=== PATIENT | male | born 1935 | race Caucasian/White ===

== ENCOUNTER → 2016-10-24 08:07 | Day surgery (SDC) | payer MEDICARE ==
[~2016-10-24 08:07] MED LIST: Acetaminophen TAB* 325 MG PO PRN; Buffered Lidocaine 1% SYRIN* 3 ML/SYR SYRINGE INTRADERM ONE; Cyclopentolate 1% OPTH.SOL* 2 ML BTL ONE; Flurbiprofen 0.03% OPTH.SOL* 2.5 ML BTL ONE; Lidocaine 1% MPF* 2 ML VIAL ONE; Lidocaine 2% EPI 1:200000 MPF* 20 ML VIAL ONE; Midazolam* 1 MG/ML 2 ML VIAL (2 MG) ONE; Neomycin/Polymy/Dex OPTH.SUSP* MAXITROL 0.1% 5 ML ONE; Phenylephrine 2.5% OPTH.SOL* 2 ML BTL ONE; Povidone Iodine 5% OPTH* 30 ML BTL ONE; Proparacaine 0.5% OPHTH.SOL* 15 ML BTL ONE; acetaZOLAMIDE TAB* 250 MG ONE
[2016-10-24 11:31] VITALS: BP 143/70
--- NOTE | 2016-10-25 08:06 | OP ---
DATE OF OPERATION: 10/24/16 - [facility] DATE OF : 39 SURGEON: Dillon Orozco MD PREOPERATIVE DIAGNOSIS: Cataract, right eye. POSTOPERATIVE DIAGNOSIS: Cataract, right eye. OPERATIVE PROCEDURE: Phacoemulsification, right eye with IOL. DESCRIPTION OF PROCEDURE: The patient was brought to the operating room after being given 1/2% Alcaine with epinephrine drops in the preoperative area. The eye was prepped and draped in the usual sterile fashion. Sterile drape and eyelid speculum were placed. Again, topical 1/2% Alcaine with epinephrine was given. A paracentesis incision was made at the 9 o'clock position with the No.75 blade. Clear cornea incision 2.2 x 2.2-mm was created at the 12 o'clock position starting at the anterior limbus using the 2.2-mm keratome. The anterior chamber was irrigated with 0.4 mL of 1% non-preservative intracameral lidocaine and filled with DisCoVisc. A capsulorrhexis was completed using the cystotome and the Utrata forceps. Hydrodissection was performed with balanced salt solution. The lens nucleus was removed with the Phacoemulsification handpiece without incident. Cortex was removed with the irrigation-aspiration handpiece. The capsular bag was re-inflated using DisCoVisc and an [id number] 18.5 implant was inserted with the shooter. The irrigation-aspiration handpiece was used to remove all residual DisCoVisc. The eye was refilled with balanced salt solution and the wound checked and found to be watertight. Topical Maxitrol drops were given. [id number]/[facility] #: [id number] [facility]
== END | disposition home or self-care (01) ==
LOC: OREAST 08:07
PROVIDERS: ATTEND Specialist
DX: H25.811 Combined forms of age-related cataract, right eye (principal); E11.9 Type 2 diabetes mellitus without complications; H50.00 Unspecified esotropia; Z87.891 Personal history of nicotine dependence; Z79.4 Long term (current) use of insulin; J44.9 Chronic obstructive pulmonary disease, unspecified
CPT/HCPCS: J2250; V2632

== ENCOUNTER → 2016-10-31 09:20 | Day surgery (SDC) | payer MEDICARE ==
[~2016-10-31 09:20] MED LIST changes: -Midazolam* 1 MG/ML 2 ML VIAL (2 MG) ONE; +Midazolam* 1 MG/ML 5 ML VIAL (5 MG) ONE
[2016-10-31 13:00] VITALS: BP 155/79
--- NOTE | 2016-11-01 02:18 | OP ---
DATE OF OPERATION: 10/31/16 - [facility] DATE OF : 39 SURGEON: Dillon Orozco M.D. PREOPERATIVE DIAGNOSIS: Cataract, left eye. POSTOPERATIVE DIAGNOSIS: Cataract, left eye. OPERATIVE PROCEDURE: Phacoemulsification, left eye with IOL. DESCRIPTION OF PROCEDURE: The patient was brought to the operating room after being given 1/2% Alcaine with epinephrine drops in the preoperative area. The eye was prepped and draped in the usual sterile fashion. Sterile drape and eyelid speculum were placed. Again, topical 1/2% Alcaine with epinephrine was given. A paracentesis incision was made at the 3 o'clock position with the No.75 blade. Clear cornea incision 2.2 x 2.2-mm was created at the 6 o'clock position starting at the anterior limbus using the 2.2-mm keratome. The anterior chamber was irrigated with 0.4 mL of 1% non-preservative intracameral lidocaine and filled with DisCoVisc. A capsulorrhexis was completed using the cystotome and the Utrata forceps. Hydrodissection was performed with balanced salt solution. The lens nucleus was removed with the Phacoemulsification handpiece without incident. Cortex was removed with the irrigation-aspiration handpiece. The capsular bag was re-inflated using DisCoVisc and an [id number] 19 implant was inserted with the shooter. The irrigation-aspiration handpiece was used to remove all residual DisCoVisc. The eye was refilled with balanced salt solution and the wound checked and found to be watertight. Topical Maxitrol drops were given. [id number]/[facility] #: [id number] [facility]
== END | disposition home or self-care (01) ==
LOC: OREAST 09:20
PROVIDERS: ATTEND Specialist
DX: H25.812 Combined forms of age-related cataract, left eye (principal); E11.9 Type 2 diabetes mellitus without complications; H50.00 Unspecified esotropia; Z87.891 Personal history of nicotine dependence; Z79.4 Long term (current) use of insulin
CPT/HCPCS: J2250; V2632

== ENCOUNTER 2017-01-25 18:42 | Emergency (ER) | payer MEDICARE ==
--- NOTE | 2017-01-25 19:57 | RAD ---
Indication: Weakness, ventriculoperitoneal shunt. CT of the brain was performed without IV contrast. Comparison is made with previous exam dated February 04, 2015. Ventricular structures are midline. No midline shift is noted. The ventricles are mildly enlarged. A ventricular shunt remains in place unchanged since previous exam. There is no evidence of intracranial mass or hemorrhage. No other high or low density lesions are identified. Mastoid air cells, calvaria and paranasal sinuses are grossly unremarkable. IMPRESSION: No significant change is noted since previous exam of February 04, 2015. Mild ventriculomegaly is noted. Ventricular shunt remains in place.
[2017-01-25 20:38] LABS: Hematocrit 40 % (42-52); Hemoglobin 13.7 g/dl (14.0-18.0); Mean Corpuscular HGB Conc 34 g/dl (31-36); Mean Corpuscular Hemoglobin 33 pg (27-31); Mean Corpuscular Volume 97 fL (80-94); Mean Platelet Volume 8 um3 (7.4-10.4); Red Blood Count 4.14 10^6/ul (4.0-5.4); Red Cell Distribution Width 13 % (10.5-15); White Blood Count 8.6 10^3/ul (3.5-10.8)
[2017-01-25 20:54] LABS: Albumin 3.8 g/dL (3.2-5.2); BUN/Creatinine Ratio 14.5 (8-20); C Reactive Protein 6.09 mg/L (< 5.00); Calcium 9.7 mg/dL (8.6-10.3); EGFR Non-African American 64.6 (>60); Globulin 3.5 g/dL (2-4); Magnesium 1.8 mg/dL (1.9-2.7); Potassium 4.2 mmol/L (3.5-5.0); Total Bilirubin 0.6 mg/dL (0.2-1.0); Total Protein 7.3 g/dL (6.4-8.9)
[2017-01-25 20:55] LABS: Troponin I 0.01 ng/mL (<0.04)
[2017-01-25 21:18] LABS: TSH (Thyroid Stimulating Horm) 1.71 mcIU/mL (0.34-5.60)
--- NOTE | 2017-01-25 23:04 | ED ---
Oscar Mohr Salem, scribed for Luis Medley MD on 01/25/17 at 1936 . Complex/Multi-Sys Presentation - HPI Summary HPI Summary: Patient is a 81 y/o M who presents to the ED with weakness for the past 3 days, worse today. Family members present at bedside deny fever, changes in urination , or nausea, but report slow BM, loose stool, hip pain, rhinorrhea, vomiting ( of yellow consistency), rib pain from falling, and loss of appetite. Family also states that pt has been falling frequently and soiling himself. Pt fell yesterday when moving from bed to bed, as well as earlier today. He soiled himself before falling today and prior to examination. Pt states he has been in and out of the hospital. - History Of Current Complaint Chief Complaint: EDWeakness Time Seen by Provider: 01/25/17 19:18 Hx Obtained From: Patient, Family/Enrichment Specialist Onset/Duration: Gradual Onset, Lasting Days, Still Present Timing: Constant Severity Currently: Moderate Severity Initially: Moderate Location: Pain At: Aggravating Factor(s): Nothing. Alleviating Factor(s): Nothing. Associated Signs And Symptoms: Positive: Weakness. Negative: Nausea, Fever - Allergies/Home Medications Allergies/Adverse Reactions: Allergies Allergy/AdvReac Type Severity Reaction Status Date / Time Atorvastatin [From Lipitor] Allergy Unknown Verified 10/31/16 10:06 Reaction Details Rosuvastatin [From Crestor] Allergy Unknown Verified 10/31/16 10:06 Reaction Details PMH/Surg Hx/FS Hx/Imm Hx Endocrine/Hematology History: Reports: Hx Diabetes Cardiovascular History: Reports: Hx Hypertension Denies: Hx Pacemaker/ICD Respiratory History: Reports: Hx Chronic Obstructive Pulmonary Disease (COPD), Hx Pneumonia Denies: Hx Asthma GI History: Reports: Hx Hiatal Hernia, Other GI Disorders - CONSTIPATION History: Reports: Other Problems/Disorders - increased incontinance, bladder ca Denies: Hx Kidney Stones, Hx Renal Disease Musculoskeletal History: Reports: Hx Arthritis, Hx Back Problems, Other Musculoskeletal History - HAS HAD BACK SURGERY PLATE WITH MARIA TERESA LOWER BACK Sensory History: Reports: Hx Cataracts, Hx Contacts or Glasses, Hx Hearing Aid - TYPICALLY DOESN'T WEAR THEM, Hx Hearing Problem - CASTILLO's at home Denies: Hx Glaucoma Opthamlomology History: Reports: Hx Cataracts, Hx Contacts or Glasses Denies: Hx Glaucoma Neurological History: Reports: Other Neuro Impairments/Disorders - V/P SHUNT 2014 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 BLADDER SURGERY 2006;. RIGHT ANKLE 1976;. SHUNT 11/03 --- DR. COOPER ( NOT PROGRAMMABLE - SAFE TO 3T DOES NOT NEED TO BE CHECKED PRIOR OR POST MRI ) ;. VASECTOMY; Hx Anesthesia Reactions: No Infectious Disease History: No Infectious Disease History: Reports: Hx Shingles - 2003 Denies: Traveled Outside the [place] in Last 30 Days - Family History Known Family History: Positive: Other - Strabismus. - Social History Alcohol Use: None Alcohol Amount: BEER Hx Substance Use: No Substance Use Type: Reports: None Hx Tobacco Use: Yes Smoking Status (MU): Former Smoker Type: Cigarettes Have You Smoked in the Last Year: No Review of Systems Negative: Fever Positive: Nasal Discharge Positive: Other - Rib pain. Positive: Vomiting, Other - Loss of appetite. . Negative: Nausea Genitourinary: Other - No changes in urination. Positive: no symptoms reported, other - "Slow" BM and loose stool. Positive: Other - Hip pain. Positive: Weakness All Other Systems Reviewed And Are Negative: Yes Physical Exam Triage Information Reviewed: Yes Vital Signs On Initial Exam: Initial Vitals Temp Pulse Resp BP Pulse Ox 99.3 F 83 20 158/98 98 01/25/17 19:01 01/25/17 19:01 01/25/17 19:01 01/25/17 19:01 01/25/17 19:01 Vital Signs Reviewed: Yes Appearance: Positive: Well-Appearing, No Pain Distress, Obese Skin: Positive: Warm, Skin Color Reflects Adequate Perfusion, Dry Head/Face: Positive: Normal Head/Face Inspection Eyes: Positive: Normal Neck: Positive: Supple, Nontender Respiratory/Lung Sounds: Positive: Clear to Auscultation, Breath Sounds Present , Other - Tender over xiphoid in costal margin. Cardiovascular: Positive: RRR Abdomen Description: Positive: Nontender, Soft Bowel Sounds: Positive: Present Musculoskeletal: Positive: Normal Neurological: Positive: Normal Psychiatric: Positive: Normal, Affect/Mood Appropriate Diagnostics - Vital Signs Vital Signs Temp Pulse Resp BP Pulse Ox 01/25/17 19:01 99.3 F 83 20 158/98 98 - Laboratory Lab Results: Lab Results 01/25/17 01/25/17 01/25/17 Range/Units 20:30 20:30 20:30 WBC 8.6 (3.5-10.8) 10^3/ul RBC 4.14 (4.0-5.4) 10^6/ul Hgb 13.7 L (14.0-18.0) g/dl Hct 40 L (42-52) % MCV 97 H (80-94) fL MCH 33 H (27-31) pg MCHC 34 (31-36) g/dl RDW 13 (10.5-15) % Plt Count 261 (150-450) 10^3/ul MPV 8 (7.4-10.4) um3 Neut % (Auto) 79.7 (38-83) % Lymph % (Auto) 11.9 L (25-47) % [place] % (Auto) 7.2 (1-9) % Eos % (Auto) 0.7 (0-6) % Baso % (Auto) 0.5 (0-2) % Absolute Neuts (auto) 6.9 (1.5-7.7) 10^3/ul Absolute Lymphs (auto) 1.0 (1.0-4.8) 10^3/ul Absolute Monos (auto) 0.6 (0-0.8) 10^3/ul Absolute Eos (auto) 0.1 (0-0.6) 10^3/ul Absolute Basos (auto) 0 (0-0.2) 10^3/ul Absolute Nucleated RBC 0 10^3/ul Nucleated RBC % 0 INR (Anticoag Therapy) 0.93 (0.89-1.11) Sodium 134 (133-145) mmol/L Potassium 4.2 (3.5-5.0) mmol/L Chloride 99 L (101-111) mmol/L Carbon Dioxide 26 (22-32) mmol/L Anion Gap 9 (2-11) mmol/L BUN 16 (6-24) mg/dL Creatinine 1.10 (0.67-1.17) mg/dL Est GFR ( Amer) 83.0 (>60) Est GFR (Non-Af Amer) 64.6 (>60) BUN/Creatinine Ratio 14.5 (8-20) Glucose 162 H (70-100) mg/dL Lactic Acid (0.5-2.0) mmol/L Calcium 9.7 (8.6-10.3) mg/dL Magnesium 1.8 L (1.9-2.7) mg/dL Total Bilirubin 0.60 (0.2-1.0) mg/dL AST 24 (13-39) U/L ALT 27 (7-52) U/L Alkaline Phosphatase 77 (34-104) U/L Troponin I 0.01 (<0.04) ng/mL C-Reactive Protein 6.09 H (< 5.00) mg/L Total Protein 7.3 (6.4-8.9) g/dL Albumin 3.8 (3.2-5.2) g/dL Globulin 3.5 (2-4) g/dL Albumin/Globulin Ratio 1.1 (1-3) TSH 1.71 (0.34-5.60) mcIU/mL 01/25/17 Range/Units 20:30 WBC (3.5-10.8) 10^3/ul RBC (4.0-5.4) 10^6/ul Hgb (14.0-18.0) g/dl Hct (42-52) % MCV (80-94) fL MCH (27-31) pg MCHC (31-36) g/dl RDW (10.5-15) % Plt Count (150-450) 10^3/ul MPV (7.4-10.4) um3 Neut % (Auto) (38-83) % Lymph % (Auto) (25-47) % Richmond % (Auto) (1-9) % Eos % (Auto) (0-6) % Baso % (Auto) (0-2) % Absolute Neuts (auto) (1.5-7.7) 10^3/ul Absolute Lymphs (auto) (1.0-4.8) 10^3/ul Absolute Monos (auto) (0-0.8) 10^3/ul Absolute Eos (auto) (0-0.6) 10^3/ul Absolute Basos (auto) (0-0.2) 10^3/ul Absolute Nucleated RBC 10^3/ul Nucleated RBC % INR (Anticoag Therapy) (0.89-1.11) Sodium (133-145) mmol/L Potassium (3.5-5.0) mmol/L Chloride (101-111) mmol/L Carbon Dioxide (22-32) mmol/L Anion Gap (2-11) mmol/L BUN (6-24) mg/dL Creatinine (0.67-1.17) mg/dL Est GFR ( Amer) (>60) Est GFR (Non-Af Amer) (>60) BUN/Creatinine Ratio (8-20) Glucose (70-100) mg/dL Lactic Acid 1.2 (0.5-2.0) mmol/L Calcium (8.6-10.3) mg/dL Magnesium (1.9-2.7) mg/dL Total Bilirubin (0.2-1.0) mg/dL AST (13-39) U/L ALT (7-52) U/L Alkaline Phosphatase (34-104) U/L Troponin I (<0.04) ng/mL C-Reactive Protein (< 5.00) mg/L Total Protein (6.4-8.9) g/dL Albumin (3.2-5.2) g/dL Globulin (2-4) g/dL Albumin/Globulin Ratio (1-3) TSH (0.34-5.60) mcIU/mL Result Diagrams: 01/25/17 20:30 01/25/17 20:30 Lab Statement: Any lab studies that have been ordered have been reviewed, and results considered in the medical decision making process. - CT BRAIN CT Interpretation Completed By: Radiologist - IMPRESSION: No significant change is noted since previous exam of February 04, 2015. Mild ventriculomegaly is noted. Ventricular shunt remains in place. - EKG 2108 EKG Interpretation: NSR @ 76 bpm. PVC's. Nonspecific changes. Complex Multi-Symp Course/Dx Course Of Treatment: Mr. Rees came in with a C/O 3 days of increasing weakness. He's been incontinent of stool a few times. He is being W/U'd at this time. - Diagnoses Provider Diagnoses: Weakness Discharge - Discharge Plan Condition: Stable Disposition: OTHER Discharge Disposition Comment: Signed out to Dr. Rouse at shift change. Referrals: Delaney Preston MD [Primary Care Provider] - The documentation as recorded by the Oscar padilla Salem accurately reflects the service I personally performed and the decisions made by me, Luis Medley MD.
[2017-01-25 23:28] LABS: Urine Bilirubin Negative (Negative); Urine Glucose Negative (Negative); Urine Nitrite Negative (Negative)
[2017-01-26 05:25] VITALS: BP 132/82
--- NOTE | 2017-01-26 08:05 | RAD ---
HISTORY: Fall, right-sided pain COMPARISONS: None VIEWS: 4, Frontal view of the chest with frontal and oblique views of the right hemithorax. FINDINGS: There is no displaced rib fracture or pneumothorax. The visualized lungs are clear. The [employer] shunt tubing is noted. There is postsurgical change to the spine IMPRESSION: NO DISPLACED RIB FRACTURE OR PNEUMOTHORAX
--- NOTE | 2017-01-26 10:23 | ED ---
Janee Mohr Rebecca, scribed for Kelle Rouse MD on 01/25/17 at 2317 . Progress - Progress Note Progress Note: Pt was signed out from Dr. Medley at 2300 for pending UA. CXR read by ED physician reveals no acute findings. R Rib XR read by ED physician reveals no obvious fracture in the R ribs. Re-Evaluation - Re-Evaluation First Eval Re-Evaluation Time: 23:14 Comment: Went in to see the pt with Dr. Medley to further discussed symptoms. Pt reports that he presents for generalized weakness and that he has chronic LE weakness that has worsened. 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 States that during his episodes of bowel incontinence he is aware that he needs to have a BM, but cannot get up. He usually needs help getting up to go to the bathroom. Dr. Medley performed a rectal exam and the pt had good rectal tone. Second Eval Re-Evaluation Time: 00:11 Comment: Discussed UA results with the pt and the current plan to D/C home. Confirms that his drives and that he believes there is a car at [facility]. Pt believes he has a walker at home to use. Confirms he feels well enough to go home. Third Eval Re-Evaluation Time: 00:15 Comment: Discussed results of the UA and labs with the . Answered any questions and addressed concerns of the . Offered the options of fluid hydration v. increasing water intake at home. confirms that he has a walker at home. Further reinforced that he must use the walker to decrease the risk of fall. reports a fall this morning and expressed concerns over right rib fx and expressed a desire for R rib XR. PCP is Dr. Preston. Fourth Eval Re-Evaluation Time: 04:24 Comment: Shared XR results with the pt and advised administration of Tylenol to treat pain at home. Course/Dx - Course Course Of Treatment: Pt was signed out form Dr. Medley at 2300, pending UA results. US reveals: urine color: yellow, appearance: clear, ketones: 1+ and negative for protein, blood, bilirubin, glucose and nitrate. Troponin of 0.01. CXR and Rib XR reveal no acute findings. Pt will be D/C to home with Dx of rib contusion and generalized weakness with a follow up with his PCP. - Diagnoses Provider Diagnoses: Rib contusion, Generalized weakness The documentation as recorded by the Janee padilla Rebecca accurately reflects the service I personally performed and the decisions made by me, Kelle Rouse MD.
== END 2017-01-26 05:27 ==
LOC: ED 18:42
DX: R53.1 Weakness (principal); R07.81 Pleurodynia; M25.559 Pain in unspecified hip; E11.9 Type 2 diabetes mellitus without complications; I10 Essential (primary) hypertension; J44.9 Chronic obstructive pulmonary disease, unspecified; E66.9 Obesity, unspecified; Z85.51 Personal history of malignant neoplasm of bladder; Z85.46 Personal history of malignant neoplasm of prostate; Z88.8 Allergy status to other drugs, medicaments and biological substances; Z87.891 Personal history of nicotine dependence
CPT/HCPCS: 36415; 70450; 80053; 81003; 83605; 83735; 84443; 84484; 85025; 85610; 86140; 93005; 99284

== ENCOUNTER 2017-02-12 16:51 | Inpatient (IN) | payer MEDICARE ==
--- NOTE | 2017-02-12 18:01 | RAD ---
Indication: Generalized weakness. Sudden onset slurred speech. Comparison: No relevant prior exams available on the [facility] PACS for comparison. Technique: Upright AP 1739 hours Report: RIGHT side ventriculoperitoneal shunt catheter noted. Suboptimal inspiration. Clear lungs and pleural spaces. Negative for pneumothorax. The heart, pulmonary vasculature, and mediastinal contours are unremarkable. Unremarkable osseous structures and soft tissue contours. IMPRESSION: Low lung volumes. No evidence for acute intrathoracic disease.
--- NOTE | 2017-02-12 18:44 | ED ---
I, Oh,Soohyun, scribed for Luis Medley MD on 02/12/17 at 1719 . Altered Mental Status - HPI Summary HPI Summary: This 81 y/o male presents to ED for slurred speech and disorientation regard to time after waking up his nap at 1500 PM. reports that pt did not know which year it is and where he was. Pt reports difficulty finding words and putting together sentences. Pt appears oriented to time and event at time of initial evaluation, and he is able to answer oriented question without any speech difficulty. Negative headache. 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 Pt has been following up with Dr. Negrete due to his recent frequent falls. Pending CT Scan to re-check his [employer] EDUCATION SCIENCE TEACHER shunt. - History Of Current Complaint Chief Complaint: EDAltMentalStatus Stated Complaint: DIFFICULTY SPEAKING Time Seen by Provider: 02/12/17 17:06 Hx Obtained From: Patient, Medical Records Onset/Duration: Resolved Timing: Constant Aggravating Factor(s): Nothing Alleviating Factor(s): Nothing Associated Signs And Symptoms: Negative: Headache - Allergies/Home Medications Allergies/Adverse Reactions: Allergies Allergy/AdvReac Type Severity Reaction Status Date / Time Atorvastatin [From Lipitor] Allergy Unknown Verified 10/31/16 10:06 Reaction Details Rosuvastatin [From Crestor] Allergy Unknown Verified 10/31/16 10:06 Reaction Details PMH/Surg Hx/FS Hx/Imm Hx Endocrine/Hematology History: Reports: Hx Diabetes Cardiovascular History: Reports: Hx Hypertension Denies: Hx Pacemaker/ICD Respiratory History: Reports: Hx Chronic Obstructive Pulmonary Disease (COPD), Hx Pneumonia Denies: Hx Asthma GI History: Reports: Hx Hiatal Hernia, Other GI Disorders - CONSTIPATION History: Reports: Other Problems/Disorders - increased incontinance, bladder ca Denies: Hx Kidney Stones, Hx Renal Disease Musculoskeletal History: Reports: Hx Arthritis, Hx Back Problems, Other Musculoskeletal History - HAS HAD BACK SURGERY PLATE WITH MARIA TERESA LOWER BACK Sensory History: Reports: Hx Cataracts, Hx Contacts or Glasses, Hx Hearing Aid - TYPICALLY DOESN'T WEAR THEM, Hx Hearing Problem - CASTILLO's at home Denies: Hx Glaucoma Opthamlomology History: Reports: Hx Cataracts, Hx Contacts or Glasses Denies: Hx Glaucoma Neurological History: Reports: Other Neuro Impairments/Disorders - V/P SHUNT [address] 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 BLADDER SURGERY 2006;. RIGHT ANKLE 1976;. SHUNT 11/03 --- DR. COOPER ( NOT PROGRAMMABLE - SAFE TO 3T DOES NOT NEED TO BE CHECKED PRIOR OR POST MRI ) ;. VASECTOMY; Hx Anesthesia Reactions: No Infectious Disease History: Yes Infectious Disease History: Reports: Hx Shingles - 2003 Denies: Traveled Outside the [place] in Last 30 Days - Family History Known Family History: Positive: Other - Strabismus. - Social History Alcohol Use: None Alcohol Amount: BEER Hx Substance Use: No Substance Use Type: Reports: None Hx Tobacco Use: Yes Smoking Status (MU): Former Smoker Type: Cigarettes Have You Smoked in the Last Year: No Review of Systems Negative: Fever Neurological: Other - Positive for disorientation regarding time. Positive: Slurred Speech. Negative: Headache All Other Systems Reviewed And Are Negative: Yes Physical Exam - Summary Physical Exam Summary: Well-appearing, no pain distress, well nourished Warm, dry, color reflects adequate perfusion Nml head/face Nml eyes Nml ENT Supple, non-tender CTA, breath sound present RRR Abd soft, non-tender, Bowel sounds + Nml musculoskeletal Nml neuro. Normal dezelx-uf-epoa test. Negative slurred speech. Mild dysmetria with his left side. Nml psychiatric, affect/mood appropriate Triage Information Reviewed: Yes Vital Signs On Initial Exam: Initial Vitals Temp Pulse Resp BP Pulse Ox 97.6 F 80 13 133/80 100 02/12/17 16:57 02/12/17 16:57 02/12/17 16:57 02/12/17 16:57 02/12/17 16:57 Vital Signs Reviewed: Yes Diagnostics - Vital Signs Vital Signs Temp Pulse Resp BP Pulse Ox 02/12/17 16:57 97.6 F 80 13 133/80 100 - Laboratory Lab Statement: Any lab studies that have been ordered have been reviewed, and results considered in the medical decision making process. - Radiology CXR Xray Interpretation: No Acute Changes Radiology Interpretation Completed By: Radiologist Altered Mental Statu Course/Dx - Course Course Of Treatment: Mr. Rees had an episode this afternoon of confusion and slurred speech that has resolved. He has been being W/U'd by Dr. Negrete who saw him recently for gait disturbances. Dr. Negrete is considering doing a therapeutic tap of his [employer] EDUCATION SCIENCE TEACHER Shunt. I spoke with Dr. Negrete about today's events and he felt that this was very unlikely to represent a stroke and requested we check for any infection and treat accordingly. He felt that Mr. Rees could go home. - Diagnoses Discharge Diagnoses: Dysarthria - Provider Notifications Discussed Care Of Patient With: Michael Negrete Time Discussed With Above Provider: 17:24 Discharge - Discharge Plan Condition: Stable Disposition: OTHER Discharge Disposition Comment: Signed out to Er. Blank The documentation as recorded by the Kaushik padilla Soohyun accurately reflects the service I personally performed and the decisions made by me, Luis Medley MD.
[2017-02-12 18:57] LABS: Hematocrit 39 % (42-52); Mean Corpuscular HGB Conc 34 g/dl (31-36); Mean Corpuscular Hemoglobin 33 pg (27-31); Mean Corpuscular Volume 98 fL (80-94); Mean Platelet Volume 8 um3 (7.4-10.4); Red Blood Count 3.93 10^6/ul (4.0-5.4); Red Cell Distribution Width 13 % (10.5-15); White Blood Count 7.8 10^3/ul (3.5-10.8)
[2017-02-12 19:13] LABS: Albumin 3.8 g/dL (3.2-5.2); BUN/Creatinine Ratio 16.8 (8-20); C Reactive Protein 7.83 mg/L (< 5.00); Calcium 9.6 mg/dL (8.6-10.3); EGFR African American 91.6 (>60); EGFR Non-African American 71.3 (>60); Globulin 3.5 g/dL (2-4); Potassium 4.3 mmol/L (3.5-5.0); Total Bilirubin 0.3 mg/dL (0.2-1.0); Total Protein 7.3 g/dL (6.4-8.9); Troponin I 0.01 ng/mL (<0.04)
[2017-02-12 21:40] LABS: Urine Bilirubin Negative (Negative); Urine Glucose Negative (Negative); Urine Nitrite Negative (Negative)
[2017-02-13] MEDS ORDERED: Psyllium PAK PO PRN (00:37)
[2017-02-13] MEDS ORDERED: Dextrose 50% Syringe 50 ML* 25 GM/50 ML SYRINGE IV PUSH PRN (00:40)
--- NOTE | 2017-02-13 03:01 | HP ---
CC: Michael Negrete MD; Delaney Preston MD * HISTORY AND PHYSICAL: DATE OF ADMISSION: 02/13/17 CHIEF COMPLAINT: Slurred speech. HISTORY OF PRESENT ILLNESS: The patient is a 81-year-old gentleman with a past medical history significant for NPH and INCLUSION INTERN shunt placement who presents to the [facility] after his noticed slurred speech he had where he could not put words together and appeared disoriented this afternoon. She notes she has been trying to get him to rehab for sometime and was hopeful to get him in later this week. She has been having increasing difficulty taking care of him at home. Right after his exercise with physical therapy, he just could not get the words out right. She was concerned about him having stroke, so she reported to the hospital. However, the symptoms quickly subsided. He was back to his usual state. Nevertheless, he has had frequent falls and she is unable to care for him at home at this current time. It is definitely a safety issue. PAST MEDICAL HISTORY: Significant for NPH, diabetes mellitus, questionable Parkinson's, bladder cancer. PAST SURGICAL HISTORY: Back surgery and right foot injury in 1976. CURRENT MEDICATIONS: 1. Psyllium 1 packet 3 times a day as needed. 2. [place] 3 fatty acids 1200 mg in the evening. 3. Lexapro 10 mg in the evening. 4. Metformin mg daily. 5. Vitamin D 1000 units daily. 6. Aspirin 81 mg daily. 7. Slow-Mag 2 tabs twice daily. 8. Multivitamin 1 tablet daily. 9. Lantus insulin 30 units subcu at bedtime. 10. Tramadol 15 mg every 8 hours. ALLERGIES: He has no known drug allergies. FAMILY HISTORY: Father had renal cell and lung cancer. Mother had cardiomyopathy. SOCIAL HISTORY: Quit tobacco in 1995. No alcohol or recreational drug use. 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 His , Cabrera, is his healthcare proxy. Her number at home is [phone]. Her cellphone number is . REVIEW OF SYSTEMS: A 14-point review of systems was completed with the patient , all pertinent positives and negatives are in the history of present illness, otherwise, it is negative. PHYSICAL EXAMINATION GENERAL: Pleasant gentleman, lying in bed, in no acute distress. VITAL SIGNS: Blood pressure 145/81, pulse ox 96%, heart rate 74 beats a minute , temperature 98.1 degrees. HEENT: Normocephalic, atraumatic. Pupils equal, round, and reactive to light. Moist mucous membranes. NECK: Supple. No JVD, bruits, palpable thyroid or lymphadenopathy. CHEST: Clear to auscultation and percussion bilaterally. CARDIOVASCULAR: S1 and S2 appreciated. ABDOMEN: Positive bowel sounds in all 4 quadrants. Soft, nontender, nondistended. EXTREMITIES: No cyanosis or clubbing, he has got bilateral edema though. NEUROLOGIC: He is alert and oriented x2. He moves all his extremities. SKIN: Pale, but no rashes or abnormalities. LAB DATA: White count of 7.9, hemoglobin 13.0, hematocrit 39, platelets of 295. Sodium was 134, potassium 4.3, chloride 99, CO2 30, BUN 17, creatinine 1.001, glucose 144, CRP 7.83. INR is 0.86. Urinalysis is unremarkable. Chest x-ray shows low lung volumes. No evidence for acute intrathoracic disease. ASSESSMENT AND PLAN: 1. Slurred speech. At this point, he may have had a transient ischemic attack. It could be related to his underlying neurological diagnosis of normal- pressure hydrocephalus. I will admit him for observation. I will get a Physical Therapy consult for him for the frequent falls. Neurology evaluation may be in order too. I think the patient would benefit from rehab and I discussed this with his and I have gotten social group worker consult as well. 2. Depression, stable. Continue Lexapro. 3. Diabetes mellitus. Continue with sliding scale insulin. Hold metformin and continue Lantus. 4. FEN, consistent carb diet. 5. DVT prophylaxis, heparin subcu. 6. The patient is a full code. TIME SPENT: Over 75 minutes were spent on this H and P, more than 45 minutes of which was spent in direct [id number] contact with the patient in evaluation , physical exam, and counseling and coordination of care. [id number]/[facility] #: [id number] [facility] H[facility]PITALLaureano
--- NOTE | 2017-02-13 03:33 | ED ---
Janee Mohr Rebecca, scribed for Guido Blank MD on 02/12/17 at 2153 . Progress - Progress Note Progress Note: Pt was signed out from Dr. Medley. Reviewed labs, UA and CXR. NO evidence of infection. Reviewed Dr. Medley's note. Dr. Negrete believed the pt could be D/C to home. Went in to talk with the family. Will talk to nursing about the disposition. At this point, the patient can be discharged. Re-Evaluation - Re-Evaluation First Eval Re-Evaluation Time: 21:52 Change: Improved Comment: Discussed labs, UA and CXR results. Family expressed concerns over taking him home. Second Eval Re-Evaluation Time: 23:03 Change: Unchanged Comment: The of the patient admits that she cannot take care of him at home. He has had multiple falls recently and needs a home care nurse. Course/Dx - Diagnoses Provider Diagnoses: Dysarthria, Ambulatory dysfunction - Provider Notifications Discussed Care Of Patient With: Ahsan Hung Time Discussed With Above Provider: 23:03 Instructed by Provider To: Other - Made him aware of the patient. Agrees to evaluate pt in the ED for a possible intermediate admission. The documentation as recorded by the Janee padilla Rebecca accurately reflects the service I personally performed and the decisions made by , Guido Blank MD.
[2017-02-13] MEDS: traMADol TAB* 50 MG PO SCH ×3 (06:21→22:39)
[2017-02-13] MEDS: Heparin VIAL(*) 5000 UNITS/ML VIAL (FIVE THOUSAND) SUBCUT SCH ×3 (06:27→22:40)
[2017-02-13] MEDS: SLOW MAG PO SCH ×2 (08:14→22:41)
[2017-02-13] MEDS: Insulin LISPRO* 1 UNITS UNIT SUBCUT SCH ×4 (08:21→22:38)
[2017-02-13] MEDS: Multivitamins/Minerals TAB PO SCH (08:22)
[2017-02-13] MEDS: Cholecalciferol TAB* 1000 UNITS PO SCH (08:22)
[2017-02-13] MEDS: Aspirin EC Low Dose* 81 MG TAB.EC PO SCH (08:22)
--- NOTE | 2017-02-13 10:01 | PN ---
Subjective Date of Service: 02/13/17 Interval History: Patient seen and examined at bedside. Mr. Rees denies any acute complaints, other than being tired. He specifically denies CASTILLO, CP, SOB, abd pain, n/v. He is confused to time and spends a significant amount of time trying to recall the month and year. He understands he is in the hospital and admits to falling at home. He states "I'm here to work with physical therapy." Family History: Unchanged from Admission Social History: Unchanged from Admission Past Medical History: Unchanged from Admission Objective Active Medications: Aspirin (Aspirin Ec Low Dose*) 81 mg PO DAILY [facility] Last Admin: 02/13/17 08:22 Dose: 81 mg Cholecalciferol (Vitamin D Tab*) 1,000 units PO DAILY [facility] Last Admin: 02/13/17 08:22 Dose: 1,000 units Citalopram Hydrobromide (Celexa Tab*) 20 mg PO QPM [facility] Dextrose (D50w Syringe 50 Ml*) 12.5 gm IV PUSH .FOR FS < 60 - SS PRN PRN Reason: FS < 60 Heparin Sodium (Porcine) (Heparin Vial(*)) 5,000 units SUBCUT Q8HR [facility] Last Admin: 02/13/17 06:27 Dose: 5,000 units Insulin Glargine (Lantus(*)) 30 units SUBCUT BEDTIME [facility] Insulin Human Lispro (Humalog*) 0 units SUBCUT ACHS [facility] PRN Reason: Protocol Last Admin: 02/13/17 08:21 Dose: 1 unit Multivitamins/Minerals (Theragran/Minerals Tab*) 1 tab PO DAILY [facility] Last Admin: 02/13/17 08:22 Dose: 1 tab Non-Formulary Medication ([place]-3 Fatty Acids [[place] Oil-1000 200 Mg]) 1,200 mg PO QPM [facility] Non-Formulary Medication (Slow Mag 71.5-119 Mg) 2 tab PO BID [facility] Last Admin: 02/13/17 08:14 Dose: Not Given Psyllium Hydrophilic Mucilloid (Metamucil Quentin*) 1 pkt PO TID PRN PRN Reason: CONSTIPATION Tramadol HCl (Ultram*) 50 mg PO Q8HR [facility] Last Admin: 02/13/17 06:21 Dose: 50 mg Vital Signs 02/13/17 02/13/17 02/13/17 01:00 02:00 02:12 Temperature 97.5 F Pulse Rate 74 73 Respiratory 24 Rate Blood Pressure 145/81 148/71 (mmHg) O2 Sat by Pulse 96 97 97 Oximetry 02/13/17 02/13/17 02/13/17 02:23 06:21 07:41 Temperature 97.5 F Pulse Rate 73 77 Respiratory 24 17 18 Rate Blood Pressure 148/71 158/80 (mmHg) O2 Sat by Pulse 97 95 Oximetry 02/13/17 02/13/17 07:57 08:00 Temperature Pulse Rate Respiratory 16 Rate Blood Pressure (mmHg) O2 Sat by Pulse 95 Oximetry Oxygen Devices in Use Now: None Appearance: Older male patient, sitting up in bed, NAD Eyes: No Scleral Icterus Ears/Nose/Mouth/Throat: Clear Oropharnyx, Mucous Membranes Moist Neck: NL Appearance and Movements; NL JVP Respiratory: Symmetrical Chest Expansion and Respiratory Effort, Clear to Auscultation Cardiovascular: NL Sounds; No Murmurs; No JVD, RRR Abdominal: NL Sounds; No Tenderness; No Distention Extremities: No Edema, No Clubbing, Cyanosis Skin: No Rash or Ulcers Neurological: - - Alert and oriented x 2, disoriented to time, oriented to situation. No dysarthria noted, follows commands Lines/Tubes/Other Access: Clean, Dry and Intact Peripheral IV Nutrition: Taking PO's Result Diagrams: 02/12/17 18:39 02/12/17 18:39 Assess/Plan/Problems-Billing Assessment: Mr. Rees is a 81 yo male with a PMH of normal pressure hydrocephalus, diabetes , ?Parkinson's Disease, depression, and bladder cancer who presented to the ED on 02/12 with concern for transient slurred speech and confusion; patient also has had multiple falls at home. - Patient Problems (1) Dysarthria Code(s): R47.1 - DYSARTHRIA AND ANARTHRIA Comment: Occurred for a few minutes at home prior to coming to hospital, now resolved Patient also noted to have some transient confusion and repeated falls at home Question if secondary to normal pressure hydrocephalus Discussed with Dr. Negrete, who sees patient as outpatient Per neuro, pt has had progressive decline that includes worsening dementia, incontinence; not consistent with TIA Neurosurgery contacted to see if SOCIOLOGY FACULTY MEMBER shunt can be accessed to lower pressure PT/OT consult (2) Hydrocephalus Code(s): G91.9 - HYDROCEPHALUS, UNSPECIFIED Comment: With V/P shunt Neurosurgery consult for potential SOCIOLOGY FACULTY MEMBER shunt tap Continue outpatient follow-up with neurology (3) Diabetes mellitus Code(s): E11.9 - TYPE 2 DIABETES MELLITUS WITHOUT COMPLICATIONS Comment: BG controlled Continue home Lantus, add Lispro SSI Hold home metformin (4) Depression Code(s): F32.9 - MAJOR DEPRESSIVE DISORDER, SINGLE EPISODE, UNSPECIFIED Comment: Continue home escitalopram (5) DVT prophylaxis Comment: SQ heparin Status and Disposition: OBV to inpatient. Anticipate patient will need VEE or NHP. having difficulty caring for patient at home.
[2017-02-13] MEDS: FATTY ACIDS PO SCH (17:14)
[2017-02-13] MEDS: OMEGA PO SCH (17:14)
[2017-02-13] MEDS: Citalopram TAB* 20 MG PO SCH (17:15)
[2017-02-13] MEDS: Insulin GLARGINE(*) 1 UNITS UNIT SUBCUT SCH (22:39)
[2017-02-14] MEDS: Heparin VIAL(*) 5000 UNITS/ML VIAL (FIVE THOUSAND) SUBCUT SCH ×3 (06:28→20:53)
[2017-02-14] MEDS: traMADol TAB* 50 MG PO SCH ×3 (06:29→20:53)
--- NOTE | 2017-02-14 08:12 | PN ---
Subjective Date of Service: 02/14/17 Interval History: Patient seen and examined at bedside. He is alert and pleasant though somewhat confused. He states, "I can never remember what day it is." Patient also initially disoriented to place but then remembered "oh right, this is the hospital." The patient denies any headache, CP, SOB, n/v. Family History: Unchanged from Admission Social History: Unchanged from Admission Past Medical History: Unchanged from Admission Objective Active Medications: Aspirin (Aspirin Ec Low Dose*) 81 mg PO DAILY [facility] Last Admin: 02/13/17 08:22 Dose: 81 mg Cholecalciferol (Vitamin D Tab*) 1,000 units PO DAILY [facility] Last Admin: 02/13/17 08:22 Dose: 1,000 units Citalopram Hydrobromide (Celexa Tab*) 20 mg PO QPM [facility] Last Admin: 02/13/17 17:15 Dose: 20 mg Dextrose (D50w Syringe 50 Ml*) 12.5 gm IV PUSH .FOR FS < 60 - SS PRN PRN Reason: FS < 60 Heparin Sodium (Porcine) (Heparin Vial(*)) 5,000 units SUBCUT Q8HR [facility] Last Admin: 02/14/17 06:28 Dose: 5,000 units Insulin Glargine (Lantus(*)) 30 units SUBCUT BEDTIME [facility] Last Admin: 02/13/17 22:39 Dose: 30 units Insulin Human Lispro (Humalog*) 0 units SUBCUT ACHS [facility] PRN Reason: Protocol Last Admin: 02/13/17 22:38 Dose: 2 unit Multivitamins/Minerals (Theragran/Minerals Tab*) 1 tab PO DAILY [facility] Last Admin: 02/13/17 08:22 Dose: 1 tab Non-Formulary Medication ([place]-3 Fatty Acids [[place] Oil-1000 200 Mg]) 1,200 mg PO QPM [facility] Last Admin: 02/13/17 17:14 Dose: Not Given Non-Formulary Medication (Slow Mag 71.5-119 Mg) 2 tab PO BID [facility] Last Admin: 02/13/17 22:41 Dose: Not Given Psyllium Hydrophilic Mucilloid (Metamucil Quentin*) 1 pkt PO TID PRN PRN Reason: CONSTIPATION Tramadol HCl (Ultram*) 50 mg PO Q8HR [facility] Last Admin: 02/14/17 06:29 Dose: 50 mg Vital Signs 02/13/17 02/13/17 02/13/17 14:31 15:33 19:26 Temperature 98.3 F 98.0 F Pulse Rate 73 75 Respiratory 16 22 23 Rate Blood Pressure 124/57 123/72 (mmHg) O2 Sat by Pulse 98 94 Oximetry 02/13/17 02/13/17 02/13/17 22:39 22:40 23:26 Temperature 98.2 F Pulse Rate 68 Respiratory 16 16 16 Rate Blood Pressure 151/77 (mmHg) O2 Sat by Pulse 97 97 Oximetry 02/14/17 02/14/17 02/14/17 00:39 03:39 06:29 Temperature 97.5 F Pulse Rate 64 Respiratory 16 16 16 Rate Blood Pressure 141/73 (mmHg) O2 Sat by Pulse 96 Oximetry Oxygen Devices in Use Now: None Appearance: Elderly male, lying in bed, NAD Eyes: No Scleral Icterus Ears/Nose/Mouth/Throat: Clear Oropharnyx - mucous membranes somewhat dry Neck: NL Appearance and Movements; NL JVP Respiratory: Symmetrical Chest Expansion and Respiratory Effort, Clear to Auscultation Cardiovascular: NL Sounds; No Murmurs; No JVD, RRR Abdominal: NL Sounds; No Tenderness; No Distention Extremities: No Edema Neurological: - - Alert, oriented to self, disoriented to place and time this AM , follows commands Lines/Tubes/Other Access: Clean, Dry and Intact Peripheral IV Nutrition: Taking PO's Result Diagrams: 02/12/17 18:39 02/12/17 18:39 Assess/Plan/Problems-Billing Assessment: Mr. Rees is a 81 yo male with a PMH of normal pressure hydrocephalus, diabetes , ?Parkinson's Disease, depression, and bladder cancer who presented to the ED on 02/12 with concern for transient slurred speech and confusion; patient also has had multiple falls at home. - Patient Problems (1) Dysarthria Code(s): R47.1 - DYSARTHRIA AND ANARTHRIA Comment: Occurred for a few minutes at home prior to coming to hospital, now resolved Patient also noted to have some transient confusion and repeated falls at home Question if secondary to hydrocephalus Discussed with Dr. Negrete, who sees patient as outpatient Per neuro, pt has had progressive decline that includes worsening dementia, incontinence; s/s not consistent with TIA Neurosurgery contacted to see if DOMESTIC LAUNDRY WORKER shunt can be accessed to check and potentially lower pressure PT/OT consult (2) Hydrocephalus Code(s): G91.9 - HYDROCEPHALUS, UNSPECIFIED Comment: With V/P shunt Neurosurgery consult for potential DOMESTIC LAUNDRY WORKER shunt tap Continue outpatient follow-up with neurology (3) Diabetes mellitus Code(s): E11.9 - TYPE 2 DIABETES MELLITUS WITHOUT COMPLICATIONS Comment: BG controlled Continue home Lantus, Lispro SSI Hold home metformin (4) Depression Code(s): F32.9 - MAJOR DEPRESSIVE DISORDER, SINGLE EPISODE, UNSPECIFIED Comment: Continue home escitalopram (5) DVT prophylaxis Comment: SQ heparin Status and Disposition: Inpatient. Anticipate patient will need VEE or NHP. having difficulty caring for patient at home.
[2017-02-14] MEDS: Insulin LISPRO* 1 UNITS UNIT SUBCUT SCH ×4 (09:10→20:54)
[2017-02-14] MEDS: SLOW MAG PO SCH ×2 (09:13→20:53)
[2017-02-14] MEDS: Multivitamins/Minerals TAB PO SCH (09:15)
[2017-02-14] MEDS: Cholecalciferol TAB* 1000 UNITS PO SCH (09:15)
[2017-02-14] MEDS: Aspirin EC Low Dose* 81 MG TAB.EC PO SCH (09:15)
--- NOTE | 2017-02-14 10:56 | CONSULT ---
Consult Consult: Neurosurgery consult Date of consult: 02/14/17 Reason for consult: History of NPH with recent decline Referring provider: Jodi Tavera NP HPI: This is a 81 year old male with past medical history significant for normal pressure hydrocephalus with SWIMMING POOL PLASTERER HELPER shunt placement, who presented to the [facility] with his for concern of slurred speech. The patient is able to adequately give history of symptoms although is unable to relate time and duration of symptoms. He states that after the shunt was placed, he was feeling well and his mental functioning and ambulation was improved. However, he has recently experienced several falls, he feels like his mind is foggy and he has had episodes of difficulty word finding. In regards to the falls, he reports right lower extremity weakness and feeling unsteady on his feet. He describes the word finding difficulty as he knows what he wants to say but is unable to put the verses together. He denies headache, lightheadedness, dizziness, vision changes or blurred vision, hearing changes, difficulty swallowing, chest pain, difficulty breathing, nausea and abdominal pain. He denies numbness, tingling and pain in the bilateral upper and lower extremities. Past medical history: 1. NPH s/p SWIMMING POOL PLASTERER HELPER shunt placement 2. Diabetes mellitus 3. Bladder cancer Past surgical history: 1. SWIMMING POOL PLASTERER HELPER shunt placement Social history: This patient lives at home with his . He is a former smoker and does not consume alcohol. Home medications: 1. Aspirin EC Low Dose* [Ecotrin EC Low Dose 81 MG*] 81 mg PO DAILY 10/30/14 [ History Confirmed 02/13/17] 2. Cholecalciferol TAB* [Vitamin D TAB*] 1,000 units PO DAILY 10/30/14 [History Confirmed 02/13/17] 3. Multivitamins/Minerals TAB* [Thera M Plus TAB*] 1 tab PO DAILY 10/30/14 [ History Confirmed 02/13/17] 4. zzInsulin GLARGINE(*) [Lantus(*)] 30 units SUBCUT BEDTIME 10/30/14 [History Confirmed 02/13/17] 5. Slow Mag 71.5-119 Mg 2 tab PO BID 01/31/16 [History Confirmed 02/13/17] 6. Tramadol HCl [Ultram] 50 mg PO Q8HR 10/18/16 [History Confirmed 02/13/17] 7. Escitalopram Oxalate [Lexapro 10 mg] 10 mg PO QPM 02/13/17 [History Confirmed 02/13/17] 8. Metformin HCl [Metformin HCl ER] 750 mg PO DAILY 02/13/17 [History Confirmed 02/13/17] 9. [place]-3 Fatty Acids [[place] Oil-1000] 1,200 mg PO QPM 02/13/17 [History Confirmed 02/13/17] 10. Psyllium MISTI* [Metamucil MISTI*] 1 pkt PO TID PRN 02/13/17 [History Confirmed 02/13/17] Allergies: 1. Atorvastatin 2. Rosuvastatin ROS: Full ROS completed; pertinent findings stated in HPI and all others negative. Physical exam: Vital Signs: Temp Pulse Resp BP Pulse Ox 98.2 F 73 16 177/104 95 02/14/17 07:51 02/14/17 07:51 02/14/17 08:29 02/14/17 07:51 02/14/17 07:51 General: Alert, oriented to person and place. Sitting comfortably in chair, no distress. HEENT: Shunt valve palpable at right frontal head. EOMI, PERRL, sclerae anicteric. Gross hearing intact but decreased. Moist mucus membranes. Neck: Supple, symmetric and nontender. No adenopathy. Full ROM. CV: Radial pulses 2+ and equal, pedal pulses palpable. Lungs: Breathing is nonlabored. Lungs are clear bilaterally. Abdomen: Normoactive bowel sounds. Abdomen is moderately rounded, soft, nontender and nondistended. Neuro: Speech is clear and coherent. CN II-XII intact. Strength in upper and lower extremities is 5/5. Sensation intact throughout. Finger to nose coordination intact. Hoffmans negative. Extremities: Full ROM. No edema. Assessment: This is a 81 year old male with history of NPH and SWIMMING POOL PLASTERER HELPER shunt placement who has experienced recent difficulty with ambulation, speech and memory, worsening over the past several weeks to months. There is possibility that the patient's worsening symptoms are related to SWIMMING POOL PLASTERER HELPER shunt dysfunction. isThis case was discussed and plan formulated with Dr. Coello. Plan: 1. Tap SWIMMING POOL PLASTERER HELPER shunt today.
[2017-02-14 16:01] LABS: CSF Glucose 114 mg/dL (40-70)
[2017-02-14 16:13] LABS: Body Fluid Appearance Clear
[2017-02-14 16:18] LABS: BF RBC Count #1 1; BF RBC Count #2 0; BF WBC Count #1 0; BF WBC Count #2 1; Body Fluid WBC 1 /mcL; RBC counts within 6%? Yes; WBC counts within 15%? Yes
[2017-02-14 17:12] LABS: Body Fluid Total Cells Counted 1
[2017-02-14] MEDS: Citalopram TAB* 20 MG PO SCH (17:31)
[2017-02-14] MEDS: OMEGA PO SCH (17:34)
[2017-02-14] MEDS: FATTY ACIDS PO SCH (17:34)
--- NOTE | 2017-02-14 20:50 | PN ---
Progress Note - Progress Note Date of Service: 02/14/17 Note: Progress Note Shunt tap performed under sterile conditions Opening Pressure normal 20 ccs CSF removed,sent for studies Distal runoff of shunt sluggish Plan-If mental status and gait improved following tap would consider shunt revision. Could discharge in am and follow up as out patient
[2017-02-14] MEDS: Insulin GLARGINE(*) 1 UNITS UNIT SUBCUT SCH (20:54)
[2017-02-15] MEDS: Heparin VIAL(*) 5000 UNITS/ML VIAL (FIVE THOUSAND) SUBCUT SCH ×3 (06:01→21:15)
[2017-02-15] MEDS: traMADol TAB* 50 MG PO SCH ×3 (06:03→21:15)
[2017-02-15] MEDS: Insulin LISPRO* 1 UNITS UNIT SUBCUT SCH ×4 (07:36→21:15)
--- NOTE | 2017-02-15 08:40 | PN ---
Subjective Date of Service: 02/15/17 Interval History: Patient seen and examined at bedside. Ms. Rees is accompanying patient. Patient is s/p fluid removal from shunt. Patient denies any noticeable difference, though his feels like he got up and walked better yesterday. He denies any acute pain, CP, SOB, n/v. Denies any speech difficulty but still has confusion with time. Ms. Rees requested to speak with Dr. Negrete regarding patient's status, as no further neurosurgical intervention recommended currently. Family History: Unchanged from Admission Social History: Unchanged from Admission Past Medical History: Unchanged from Admission Objective Active Medications: Aspirin (Aspirin Ec Low Dose*) 81 mg PO DAILY [facility] Last Admin: 02/14/17 09:15 Dose: 81 mg Cholecalciferol (Vitamin D Tab*) 1,000 units PO DAILY [facility] Last Admin: 02/14/17 09:15 Dose: 1,000 units Citalopram Hydrobromide (Celexa Tab*) 20 mg PO QPM [facility] Last Admin: 02/14/17 17:31 Dose: 20 mg Dextrose (D50w Syringe 50 Ml*) 12.5 gm IV PUSH .FOR FS < 60 - SS PRN PRN Reason: FS < 60 Heparin Sodium (Porcine) (Heparin Vial(*)) 5,000 units SUBCUT Q8HR [facility] Last Admin: 02/15/17 06:01 Dose: 5,000 units Insulin Glargine (Lantus(*)) 30 units SUBCUT BEDTIME [facility] Last Admin: 02/14/17 20:54 Dose: 30 units Insulin Human Lispro (Humalog*) 0 units SUBCUT ACHS [facility] PRN Reason: Protocol Last Admin: 02/15/17 07:36 Dose: Not Given Multivitamins/Minerals (Theragran/Minerals Tab*) 1 tab PO DAILY [facility] Last Admin: 02/14/17 09:15 Dose: 1 tab Non-Formulary Medication ([place]-3 Fatty Acids [[place] Oil-1000 200 Mg]) 1,200 mg PO QPM [facility] Last Admin: 02/14/17 17:34 Dose: Not Given Non-Formulary Medication (Slow Mag 71.5-119 Mg) 2 tab PO BID [facility] Last Admin: 02/14/17 20:53 Dose: Not Given Psyllium Hydrophilic Mucilloid (Metamucil Quentin*) 1 pkt PO TID PRN PRN Reason: CONSTIPATION Tramadol HCl (Ultram*) 50 mg PO Q8HR [facility] Last Admin: 02/15/17 06:03 Dose: 50 mg Vital Signs 02/14/17 02/14/17 02/14/17 10:29 10:36 11:48 Temperature 97.7 F Pulse Rate 80 73 Respiratory 16 16 Rate Blood Pressure 123/62 145/59 (mmHg) O2 Sat by Pulse 100 Oximetry 02/14/17 02/14/17 02/14/17 12:29 14:01 14:29 Temperature Pulse Rate Respiratory 16 16 16 Rate Blood Pressure (mmHg) O2 Sat by Pulse Oximetry 02/14/17 02/14/17 02/14/17 15:15 16:01 16:29 Temperature 98.0 F Pulse Rate 72 Respiratory 20 18 18 Rate Blood Pressure 155/85 (mmHg) O2 Sat by Pulse 98 Oximetry 02/14/17 02/14/17 02/14/17 19:35 20:00 20:53 Temperature 97.3 F Pulse Rate 77 Respiratory 18 18 18 Rate Blood Pressure 127/60 (mmHg) O2 Sat by Pulse 97 Oximetry 02/14/17 02/14/17 02/15/17 22:53 23:20 03:31 Temperature 97.6 F 97.3 F Pulse Rate 70 71 Respiratory 18 16 16 Rate Blood Pressure 139/93 147/75 (mmHg) O2 Sat by Pulse 99 96 Oximetry 02/15/17 02/15/17 02/15/17 06:03 07:24 07:41 Temperature 97.7 F Pulse Rate 66 Respiratory 20 16 16 Rate Blood Pressure 144/84 (mmHg) O2 Sat by Pulse 98 98 Oximetry Oxygen Devices in Use Now: None Appearance: Elderly male, lying in bed, NAD Eyes: No Scleral Icterus, PERRLA Ears/Nose/Mouth/Throat: Clear Oropharnyx, Mucous Membranes Moist Neck: NL Appearance and Movements; NL JVP Respiratory: Symmetrical Chest Expansion and Respiratory Effort, Clear to Auscultation Cardiovascular: NL Sounds; No Murmurs; No JVD, RRR Abdominal: NL Sounds; No Tenderness; No Distention Extremities: No Edema Neurological: - - Alert, oriented to self, place, cannot state year. States month is June, then February. Oriented to situation. Lines/Tubes/Other Access: Clean, Dry and Intact Peripheral IV Nutrition: Taking PO's Result Diagrams: 02/12/17 18:39 02/12/17 18:39 Microbiology and Other Data: Microbiology 02/14/17 15:30 CSF Gram Stain (Tube 3) - Final Cerebral Spinal Fluid Assess/Plan/Problems-Billing Assessment: Mr. Rees is a 81 yo male with a PMH of normal pressure hydrocephalus, diabetes , ?Parkinson's Disease, depression, and bladder cancer who presented to the ED on 02/12 with concern for transient slurred speech and confusion; patient also has had multiple falls at home. - Patient Problems (1) Dysarthria Code(s): R47.1 - DYSARTHRIA AND ANARTHRIA Comment: Occurred for a few minutes at home prior to coming to hospital, now resolved Patient also noted to have some transient confusion and repeated falls at home Appreciate neurosurgery consult No significant difference noted after RICE DRIER shunt tap Discussed with Dr. Negrete, who will see patient today (2) Hydrocephalus Code(s): G91.9 - HYDROCEPHALUS, UNSPECIFIED Comment: With V/P shunt Appreciate neurosurgery consult Continue outpatient follow-up with neurology and neurosurgery (3) Diabetes mellitus Code(s): E11.9 - TYPE 2 DIABETES MELLITUS WITHOUT COMPLICATIONS Comment: BG 100s-200s Continue home Lantus. Increase Lispro SSI Hold home metformin (4) Depression Code(s): F32.9 - MAJOR DEPRESSIVE DISORDER, SINGLE EPISODE, UNSPECIFIED Comment: Continue home escitalopram (5) DVT prophylaxis Comment: SQ heparin Status and Disposition: Inpatient. Anticipate patient will need VEE or NHP. having difficulty caring for patient at home.
[2017-02-15] MEDS: SLOW MAG PO SCH ×2 (08:59→21:16)
[2017-02-15] MEDS: Multivitamins/Minerals TAB PO SCH (09:00)
[2017-02-15] MEDS: Cholecalciferol TAB* 1000 UNITS PO SCH (09:00)
[2017-02-15] MEDS: Aspirin EC Low Dose* 81 MG TAB.EC PO SCH ×2 (09:00→17:43)
--- NOTE | 2017-02-15 09:19 | PN ---
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 Recent reports of difficulty with speech, gait instability and falls prompted evaluation of functionality of the shunt. Shunt was tapped by Dr. Coello yesterday afternoon , 20 cc CSF was collected and sent for testing. This morning he feels the same as yesterday before the shunt tap. He has not noticed a change in his cognition or "fogginess" of his mind. He also denies improvement in his gait when he got up this morning. The patient's states that he has been having more frequent episodes of urine incontinence which was also the case before shunt placement. Incontinence improved after shunt placement but has worsened since. ] Objective: [ Vital Signs: Temp Pulse Resp BP Pulse Ox 97.7 F 66 16 144/84 98 02/15/17 07:24 02/15/17 07:24 02/15/17 08:03 02/15/17 07:24 02/15/17 07:41 General: Alert, oriented to person and place. Laying comfortably in bed. Head: Right frontal shunt valve palpable, no swelling or ecchymosis. Neuro: Strength 5/5 in upper and lower extremities. Sensation intact. Extremities: Full ROM, uses walker for ambulation ] Assessment: [It appears that the patient's symptoms have not improved with the shunt tap. Mental status unchanged since prior to tap. The patient's would like to evaluate his gait today when he gets up to determine if she notices a difference. We discussed following up in office with Dr. Coello in a couple of weeks. ] Plan: [1. Discharge to rehab when medically appropriate. 2. Follow up in office with Dr. Coello. ]
[2017-02-15] MEDS: OMEGA PO SCH (17:11)
[2017-02-15] MEDS: FATTY ACIDS PO SCH (17:11)
[2017-02-15] MEDS: Citalopram TAB* 20 MG PO SCH (17:43)
[2017-02-15] MEDS: Insulin GLARGINE(*) 1 UNITS UNIT SUBCUT SCH (21:15)
--- NOTE | 2017-02-16 00:08 | CONS ---
CC: Dr. Coello NEUROLOGY FOLLOWUP: DATE OF FOLLOWUP: CHIEF COMPLAINT: Dementia, gait disorder, normal-pressure hydrocephalus. INTERVAL HISTORY: Since yesterday, Janusz had his shunt tapped by his Dr. Coello and Prudence Curtis. A 20 cc of spinal fluid were removed. Dr. Coello commented the distal runoff of the shunt was slu ggish. I spoke with Mrs. Rees and she felt that he walked a bit better after the shunt. Mr. Hilario grey remains pleasantly demented and does not really know if there has been any change or not. MEDICATIONS: Reviewed. He remains on: 1. Aspirin 81 mg p.o. daily. 2. Citalopram 20 mg p.o. daily. 3. Insulin. 4. Tramadol 50 mg p.o. q.8 hours as needed for pain. PHYSICAL EXAMINATION: He is afebrile, temperature is 97.4 orally, blood pressure is 133/70, heart r ate in the 70s and regular. Eye movements are full. Facial musculature is symmetric. Speech is clear. There is paratonia in t he legs. He has mild grade 4+ hip flexor weakness. He is not able to get up out of his chair witho ut assistance. IMPRESSION AND PLAN: Impression is that of a history of normal-pressure hydrocephalus with further decline. I am sure if the shunt revision would help or not, but I think it is his only chance of a reversible cause for his dementia and gait disorder. I will discuss it with Dr. Coello. I spoke w ith Mrs. Rees as well and told her that I think it is worth considering a shunt revision as I do n ot really have anything to offer that might improve his neurological functioning. [id number]/[facility] #: [id number]
[2017-02-16] MEDS: traMADol TAB* 50 MG PO SCH ×3 (05:43→21:11)
[2017-02-16] MEDS: Heparin VIAL(*) 5000 UNITS/ML VIAL (FIVE THOUSAND) SUBCUT SCH ×3 (05:44→21:13)
[2017-02-16] MEDS: Insulin LISPRO* 1 UNITS UNIT SUBCUT SCH ×4 (07:23→21:12)
[2017-02-16] MEDS: SLOW MAG PO SCH ×2 (07:50→21:02)
[2017-02-16] MEDS: Multivitamins/Minerals TAB PO SCH (08:12)
[2017-02-16] MEDS: Cholecalciferol TAB* 1000 UNITS PO SCH (08:12)
--- NOTE | 2017-02-16 09:48 | PN ---
Subjective Date of Service: 02/16/17 Interval History: Patient seen and examined at bedside. He is more pleasantly confused this AM, unsure of where he is initially. The patient cannot recall the events earlier this AM, cannot identify month or year. He denies CASTILLO, dizziness, CP, SOB, abd pain. Family History: Unchanged from Admission Social History: Unchanged from Admission Past Medical History: Unchanged from Admission Objective Active Medications: Aspirin (Aspirin Ec Low Dose*) 81 mg PO DAILY@1800 [facility] Cholecalciferol (Vitamin D Tab*) 1,000 units PO DAILY [facility] Last Admin: 02/16/17 08:12 Dose: 1,000 units Citalopram Hydrobromide (Celexa Tab*) 20 mg PO QPM [facility] Last Admin: 02/15/17 17:43 Dose: 20 mg Dextrose (D50w Syringe 50 Ml*) 12.5 gm IV PUSH .FOR FS < 60 - SS PRN PRN Reason: FS < 60 Heparin Sodium (Porcine) (Heparin Vial(*)) 5,000 units SUBCUT Q8HR [facility] Last Admin: 02/16/17 05:44 Dose: 5,000 units Insulin Glargine (Lantus(*)) 30 units SUBCUT BEDTIME [facility] Last Admin: 02/15/17 21:15 Dose: 30 units Insulin Human Lispro (Humalog*) 0 units SUBCUT ACHS [facility] PRN Reason: Protocol Last Admin: 02/16/17 07:23 Dose: Not Given Multivitamins/Minerals (Theragran/Minerals Tab*) 1 tab PO DAILY [facility] Last Admin: 02/16/17 08:12 Dose: 1 tab Non-Formulary Medication ([place]-3 Fatty Acids [[place] Oil-1000 200 Mg]) 1,200 mg PO QPM [facility] Last Admin: 02/15/17 17:11 Dose: Not Given Non-Formulary Medication (Slow Mag 71.5-119 Mg) 2 tab PO BID [facility] Last Admin: 02/16/17 07:50 Dose: Not Given Psyllium Hydrophilic Mucilloid (Metamucil Quentin*) 1 pkt PO TID PRN PRN Reason: CONSTIPATION Tramadol HCl (Ultram*) 50 mg PO Q8HR [facility] Last Admin: 02/16/17 05:43 Dose: 50 mg Vital Signs 02/15/17 02/15/17 02/15/17 11:32 15:20 19:27 Temperature 97.4 F 97.4 F 97.4 F Pulse Rate 71 73 78 Respiratory 18 20 20 Rate Blood Pressure 133/70 136/52 154/75 (mmHg) O2 Sat by Pulse 98 96 98 Oximetry 02/15/17 02/15/17 02/15/17 20:00 21:15 23:40 Temperature 97.7 F Pulse Rate 75 Respiratory 16 18 18 Rate Blood Pressure 156/84 (mmHg) O2 Sat by Pulse 92 93 Oximetry 02/16/17 02/16/17 02/16/17 03:46 05:43 07:23 Temperature 97.6 F 98.1 F Pulse Rate 82 76 Respiratory 16 18 16 Rate Blood Pressure 171/91 132/78 (mmHg) O2 Sat by Pulse 94 95 Oximetry 02/16/17 02/16/17 07:27 07:43 Temperature Pulse Rate Respiratory 16 16 Rate Blood Pressure (mmHg) O2 Sat by Pulse 95 Oximetry Oxygen Devices in Use Now: None Appearance: Older male patient, sitting up in bed, in NAD Eyes: No Scleral Icterus Ears/Nose/Mouth/Throat: Clear Oropharnyx, Mucous Membranes Moist Neck: NL Appearance and Movements; NL JVP Respiratory: Symmetrical Chest Expansion and Respiratory Effort, Clear to Auscultation Cardiovascular: NL Sounds; No Murmurs; No JVD, RRR Abdominal: NL Sounds; No Tenderness; No Distention Extremities: No Edema Neurological: - - alert, oriented to self only Lines/Tubes/Other Access: Clean, Dry and Intact Peripheral IV Nutrition: Taking PO's Result Diagrams: 02/12/17 18:39 02/12/17 18:39 Microbiology and Other Data: Microbiology 02/14/17 15:30 CSF Gram Stain (Tube 3) - Final Cerebral Spinal Fluid Assess/Plan/Problems-Billing Assessment: Mr. Rees is a 81 yo male with a PMH of normal pressure hydrocephalus, diabetes , ?Parkinson's Disease, depression, and bladder cancer who presented to the ED on 02/12 with concern for transient slurred speech and confusion; patient also has had multiple falls at home. - Patient Problems (1) Dysarthria Code(s): R47.1 - DYSARTHRIA AND ANARTHRIA Comment: Occurred for a few minutes at home prior to coming to hospital, now resolved Patient also noted to have some transient confusion and repeated falls at home Appreciate neurology neurosurgery consult No significant difference noted by patient after MOTOR VEHICLE CLERK shunt tap; feels like he was walking better. Plan for rehab, ? if shunt revision would be beneficial prior to dc (2) Hydrocephalus Code(s): G91.9 - HYDROCEPHALUS, UNSPECIFIED Comment: With V/P shunt S/p tap with minimal change Appreciate neurosurgery consult Continue outpatient follow-up with neurology and neurosurgery (3) Diabetes mellitus Code(s): E11.9 - TYPE 2 DIABETES MELLITUS WITHOUT COMPLICATIONS Comment: BG controlled Continue home Lantus, Lispro SSI Hold home metformin (4) Depression Code(s): F32.9 - MAJOR DEPRESSIVE DISORDER, SINGLE EPISODE, UNSPECIFIED Comment: Continue home escitalopram (5) DVT prophylaxis Comment: SQ heparin Status and Disposition: Inpatient. Currently plan for d/c to [facility]EE as having difficulty caring for patient at home.
[2017-02-16] MEDS ORDERED: Polyethylene Glycol 3350* 17 GM PACKET PO PRN (09:53)
[2017-02-16] MEDS ORDERED: Magnesium Hydroxide LIQ* 30 ML UDC PO PRN (09:53)
[2017-02-16] MEDS ORDERED: Senna TAB PO PRN (09:53)
[2017-02-16] MEDS: Docusate CAP* 100 MG PO PRN ×2 (13:21→21:11)
[2017-02-16] MEDS: Aspirin EC Low Dose* 81 MG TAB.EC PO SCH (17:14)
[2017-02-16] MEDS: Citalopram TAB* 20 MG PO SCH (17:14)
[2017-02-16] MEDS: FATTY ACIDS PO SCH (17:17)
[2017-02-16] MEDS: OMEGA PO SCH (17:17)
[2017-02-16] MEDS: Insulin GLARGINE(*) 1 UNITS UNIT SUBCUT SCH (21:11)
[2017-02-17] MEDS: traMADol TAB* 50 MG PO SCH ×3 (05:49→21:09)
[2017-02-17] MEDS: Heparin VIAL(*) 5000 UNITS/ML VIAL (FIVE THOUSAND) SUBCUT SCH ×3 (05:49→21:13)
[2017-02-17 06:42] LABS: Hematocrit 35 % (42-52); Hemoglobin 11.8 g/dl (14.0-18.0); Mean Corpuscular HGB Conc 33 g/dl (31-36); Mean Corpuscular Hemoglobin 33 pg (27-31); Mean Corpuscular Volume 99 fL (80-94); Mean Platelet Volume 8 um3 (7.4-10.4); Red Blood Count 3.56 10^6/ul (4.0-5.4); Red Cell Distribution Width 13 % (10.5-15); White Blood Count 6.8 10^3/ul (3.5-10.8)
[2017-02-17 06:59] LABS: BUN/Creatinine Ratio 17.1 (8-20); Calcium 9.4 mg/dL (8.6-10.3); EGFR African American 77.3 (>60); EGFR Non-African American 60.1 (>60)
[2017-02-17] MEDS: Insulin LISPRO* 1 UNITS UNIT SUBCUT SCH ×4 (07:57→21:11)
[2017-02-17] MEDS: SLOW MAG PO SCH ×2 (09:57→21:01)
[2017-02-17] MEDS: Cholecalciferol TAB* 1000 UNITS PO SCH (10:02)
[2017-02-17] MEDS: Multivitamins/Minerals TAB PO SCH (10:02)
--- NOTE | 2017-02-17 10:30 | PN ---
Subjective Date of Service: 02/17/17 Interval History: Patient seen and examined at bedside. Mr. Rees is OOB to chair, eating breakfast. He is oriented to self, place, situation, disoriented to time. Reports feeling better than yesterday. No acute concerns or complaints. Family History: Unchanged from Admission Social History: Unchanged from Admission Past Medical History: Unchanged from Admission Objective Active Medications: Aspirin (Aspirin Ec Low Dose*) 81 mg PO DAILY@1800 [facility] Last Admin: 02/16/17 17:14 Dose: 81 mg Cholecalciferol (Vitamin D Tab*) 1,000 units PO DAILY [facility] Last Admin: 02/17/17 10:02 Dose: 1,000 units Citalopram Hydrobromide (Celexa Tab*) 20 mg PO QPM [facility] Last Admin: 02/16/17 17:14 Dose: 20 mg Dextrose (D50w Syringe 50 Ml*) 12.5 gm IV PUSH .FOR FS < 60 - SS PRN PRN Reason: FS < 60 Docusate Sodium (Colace Cap*) 100 mg PO BID PRN PRN Reason: CONSTIPATION Last Admin: 02/16/17 21:11 Dose: 100 mg Heparin Sodium (Porcine) (Heparin Vial(*)) 5,000 units SUBCUT Q8HR [facility] Last Admin: 02/17/17 05:49 Dose: 5,000 units Insulin Glargine (Lantus(*)) 30 units SUBCUT BEDTIME [facility] Last Admin: 02/16/17 21:11 Dose: 30 units Insulin Human Lispro (Humalog*) 0 units SUBCUT ACHS [facility] PRN Reason: Protocol Last Admin: 02/17/17 07:57 Dose: Not Given Magnesium Hydroxide (Milk Of Magnesia Liq*) 30 ml PO Q4H PRN PRN Reason: CONSTIPATION Multivitamins/Minerals (Theragran/Minerals Tab*) 1 tab PO DAILY [facility] Last Admin: 02/17/17 10:02 Dose: 1 tab Non-Formulary Medication ([place]-3 Fatty Acids [[place] Oil-1000 200 Mg]) 1,200 mg PO QPM [facility] Last Admin: 02/16/17 17:17 Dose: Not Given Non-Formulary Medication (Slow Mag 71.5-119 Mg) 2 tab PO BID [facility] Last Admin: 02/17/17 09:57 Dose: Not Given Polyethylene Glycol/Electrolytes (Miralax*) 17 gm PO DAILY PRN PRN Reason: CONSTIPATION Psyllium Hydrophilic Mucilloid (Metamucil Quentin*) 1 pkt PO TID PRN PRN Reason: CONSTIPATION Senna (Senokot Tab*) 2 tab PO BEDTIME PRN PRN Reason: CONSTIPATION Last Admin: 02/16/17 21:10 Dose: 2 tab Tramadol HCl (Ultram*) 50 mg PO Q8HR [facility] Last Admin: 02/17/17 05:49 Dose: 50 mg Vital Signs 02/16/17 02/16/17 02/16/17 16:12 19:38 20:00 Temperature 98.0 F 98.6 F Pulse Rate 74 74 Respiratory 22 23 18 Rate Blood Pressure 146/78 119/69 (mmHg) O2 Sat by Pulse 94 94 94 Oximetry 02/16/17 02/16/17 02/16/17 21:11 23:11 23:31 Temperature 98.1 F Pulse Rate 73 Respiratory 18 16 16 Rate Blood Pressure 137/79 (mmHg) O2 Sat by Pulse 93 Oximetry 02/17/17 02/17/17 02/17/17 03:55 05:49 07:49 Temperature 97.3 F Pulse Rate 73 Respiratory 16 18 18 Rate Blood Pressure 110/79 (mmHg) O2 Sat by Pulse 94 Oximetry Oxygen Devices in Use Now: None Appearance: Older male, OOB to chair, in NAD Eyes: No Scleral Icterus, PERRLA Ears/Nose/Mouth/Throat: Clear Oropharnyx, Mucous Membranes Moist Neck: NL Appearance and Movements; NL JVP Respiratory: Symmetrical Chest Expansion and Respiratory Effort, Clear to Auscultation Cardiovascular: NL Sounds; No Murmurs; No JVD, RRR Abdominal: NL Sounds; No Tenderness; No Distention Extremities: No Edema Neurological: - - Alert, oriented to self, place, and situation; disoriented to time Lines/Tubes/Other Access: Clean, Dry and Intact Peripheral IV Nutrition: Taking PO's Result Diagrams: 02/17/17 06:23 02/17/17 06:23 Microbiology and Other Data: Microbiology 02/14/17 15:30 CSF Gram Stain (Tube 3) - Final Cerebral Spinal Fluid Assess/Plan/Problems-Billing Assessment: Mr. Rees is a 81 yo male with a PMH of normal pressure hydrocephalus, diabetes , ?Parkinson's Disease, depression, and bladder cancer who presented to the ED on 02/12 with concern for transient slurred speech and confusion; patient also has had multiple falls at home. - Patient Problems (1) Dysarthria Code(s): R47.1 - DYSARTHRIA AND ANARTHRIA Comment: Occurred for a few minutes at home prior to coming to hospital, now resolved Patient also noted to have some transient confusion and repeated falls at home Appreciate neurology and neurosurgery consults No significant difference noted by patient after EXTRACTION SUPERVISOR shunt tap; feels like he was walking better. Plan for rehab, outpatient follow-up with neurosurgery (2) Hydrocephalus Code(s): G91.9 - HYDROCEPHALUS, UNSPECIFIED Comment: With V/P shunt S/p tap with minimal change Appreciate neurosurgery consult Continue outpatient follow-up with neurology and neurosurgery (3) Diabetes mellitus Code(s): E11.9 - TYPE 2 DIABETES MELLITUS WITHOUT COMPLICATIONS Comment: BG controlled Continue home Lantus, Lispro SSI Hold home metformin (4) Depression Code(s): F32.9 - MAJOR DEPRESSIVE DISORDER, SINGLE EPISODE, UNSPECIFIED Comment: Continue home escitalopram (5) DVT prophylaxis Comment: SQ heparin Status and Disposition: Inpatient. Currently plan for d/c to [facility] as having difficulty caring for patient at home.
[2017-02-17] MEDS: OMEGA PO SCH (17:22)
[2017-02-17] MEDS: FATTY ACIDS PO SCH (17:22)
[2017-02-17] MEDS: Aspirin EC Low Dose* 81 MG TAB.EC PO SCH (17:24)
[2017-02-17] MEDS: Citalopram TAB* 20 MG PO SCH (17:24)
[2017-02-17] MEDS: Insulin GLARGINE(*) 1 UNITS UNIT SUBCUT SCH (21:12)
[2017-02-18] MEDS: traMADol TAB* 50 MG PO SCH (05:44)
[2017-02-18] MEDS: Heparin VIAL(*) 5000 UNITS/ML VIAL (FIVE THOUSAND) SUBCUT SCH (05:44)
[2017-02-18 07:22] VITALS: BP 137/60
[2017-02-18] MEDS: Insulin LISPRO* 1 UNITS UNIT SUBCUT SCH (08:15)
[2017-02-18] MEDS: SLOW MAG PO SCH (08:21)
[2017-02-18] MEDS: Cholecalciferol TAB* 1000 UNITS PO SCH (08:22)
[2017-02-18] MEDS: Multivitamins/Minerals TAB PO SCH (08:22)
--- NOTE | 2017-02-18 09:35 | PN ---
Subjective Date of Service: 02/18/17 Interval History: Mr. Rees states that he is feeling well today and he has no complaints. Family History: Unchanged from Admission Social History: Unchanged from Admission Past Medical History: Unchanged from Admission Objective Active Medications: Aspirin (Aspirin Ec Low Dose*) 81 mg PO DAILY@1800 [facility] Cholecalciferol (Vitamin D Tab*) 1,000 units PO DAILY [facility] Citalopram Hydrobromide (Celexa Tab*) 20 mg PO QPM [facility] Dextrose (D50w Syringe 50 Ml*) 12.5 gm IV PUSH .FOR FS < 60 - SS PRN Docusate Sodium (Colace Cap*) 100 mg PO BID [facility] Heparin Sodium (Porcine) (Heparin Vial(*)) 5,000 units SUBCUT Q8HR [facility] Insulin Glargine (Lantus(*)) 30 units SUBCUT BEDTIME [facility] Insulin Human Lispro (Humalog*) 0 units SUBCUT ACHS [facility] Magnesium Hydroxide (Milk Of Magnesia Liq*) 30 ml PO Q4H [facility] Multivitamins/Minerals (Theragran/Minerals Tab*) 1 tab PO DAILY [facility] Non-Formulary Medication ([place]-3 Fatty Acids [[place] Oil-1000 200 Mg]) 1,200 mg PO QPM [facility] Non-Formulary Medication (Slow Mag 71.5-119 Mg) 2 tab PO BID [facility] Polyethylene Glycol/Electrolytes (Miralax*) 17 gm PO DAILY [facility] Psyllium Hydrophilic Mucilloid (Metamucil Quentin*) 1 pkt PO TID PRN Senna (Senokot Tab*) 2 tab PO BEDTIME [facility] Tramadol HCl (Ultram*) 50 mg PO Q8HR [facility] Vital Signs 02/17/17 02/17/17 02/17/17 11:48 15:46 20:00 Temperature 98.0 F 98.1 F Pulse Rate 83 76 Respiratory 20 21 18 Rate Blood Pressure 113/72 144/76 (mmHg) O2 Sat by Pulse 98 94 98 Oximetry 02/17/17 02/17/17 02/17/17 21:09 23:09 23:41 Temperature 97.2 F Pulse Rate 74 Respiratory 22 20 16 Rate Blood Pressure 139/72 (mmHg) O2 Sat by Pulse 98 Oximetry 02/18/17 02/18/17 02/18/17 03:43 05:44 07:22 Temperature 98.2 F 98.2 F Pulse Rate 73 74 Respiratory 16 18 18 Rate Blood Pressure 131/62 137/60 (mmHg) O2 Sat by Pulse 94 96 Oximetry 02/18/17 08:15 Temperature Pulse Rate Respiratory 18 Rate Blood Pressure (mmHg) O2 Sat by Pulse Oximetry Oxygen Devices in Use Now: None Appearance: Male sitting up in bed in NAD Eyes: No Scleral Icterus Ears/Nose/Mouth/Throat: Mucous Membranes Moist Neck: Trachea Midline Respiratory: Symmetrical Chest Expansion and Respiratory Effort, Clear to Auscultation Cardiovascular: NL Sounds; No Murmurs; No JVD, No Edema Abdominal: NL Sounds; No Tenderness; No Distention Lymphatic: No Cervical Adenopathy Extremities: No Edema Skin: No Rash or Ulcers Neurological: Alert and Oriented x 3, NL Muscle Strength and Tone Nutrition: Taking PO's Result Diagrams: 02/17/17 06:23 02/17/17 06:23 Microbiology and Other Data: Microbiology 02/14/17 15:30 CSF Gram Stain (Tube 3) - Final Cerebral Spinal Fluid Assess/Plan/Problems-Billing Assessment: Mr. Rees is a 81 yo male with a PMH of normal pressure hydrocephalus, diabetes , ?Parkinson's Disease, depression, and bladder cancer who presented to the ED on 02/12 with concern for transient slurred speech, confusion and multiple recent falls at home. - Patient Problems (1) Dysarthria Comment: - With confusion and falls at home. - Appreciate neurology and neurosurgery consults, no concern for CVA, suspect related to normal pressure hydrocephalus. However, no significant difference noted by patient after DATA MANAGEMENT MANAGER shunt tap. - Plan for rehab, outpatient follow-up with neurosurgery (2) Hydrocephalus Comment: - With V/P shunt, s/p tap with minimal change. - Appreciate neurosurgery and neurology consults. - Continue outpatient follow-up. (3) Diabetes mellitus Comment: - BG controlled. - Continue home Lantus, resume metformin at discharge. (4) Depression Comment: - Continue home escitalopram. (5) DVT prophylaxis Comment: SQ heparin Status and Disposition: [facility] [place]
--- NOTE | 2017-02-18 11:03 | DS ---
CC: Dr. Preston.* MEDICINE DISCHARGE SUMMARY: DATE OF ADMISSION: 02/13/17 DATE OF DISCHARGE: 02/18/17 PROVIDER: Lei Villegas NP ATTENDING PHYSICIAN: Dr. Naya Bond * (dictated by Lei Villegas NP) CONSULTING PHYSICIANS: 1. Dr. Michael Negrete, neurology. 2. Dr. Michael Coello, neurosurgery. PRIMARY CARE PROVIDER: Dr. Delaney Preston. PRIMARY DISCHARGE DIAGNOSES: 1. Dysarthria, now resolved. 2. Normal-pressure hydrocephalus. SECONDARY DISCHARGE DIAGNOSES: 1. Type 2 diabetes. 2. Depression. 3. Previous diagnosis of Parkinson's disease, not on Sinemet. MEDICATIONS AT DISCHARGE: 1. Psyllium one packet t.i.d. p.r.n. 2. [place]-3 1200 mg q.p.m. 3. Citalopram 10 mg q.p.m. 4. Metformin 750 mg daily. 5. Cholecalciferol 1000 units daily. 6. Aspirin 81 mg daily. 7. Slow-magnesium supplement two tabs b.i.d. 8. Multivitamin one tab daily. 9. Insulin glargine 30 units subcu at bedtime. 10. Tramadol 50 mg q.8 hours. HOSPITAL COURSE OF STAY: For full details, please refer to the H and P provided by Dr. Hung. In summary, Mr. Rees is a 81-year-old gentleman who presented to the ER after his noted some slurred speech at home where the patient had difficulty putting his words together with increased confusion. The patient's reports that she has been trying to get him into rehab for quite some time due to progressive weakness as well as general decline which includes incontinence and confusion. The patient presented to the ER appearing to be back at his baseline. He was seen by the ER provider who spoke with Dr. Negrete who is the patient's primary neurologist. It was felt that the patient could go home. However, the expressed concern for inability to take care of the patient at home due to his progressive decline as well as her concern for his transient episode. The patient was admitted for initial observation. Per neurology, a stroke workup did not seem indicated; however, he did recommend that neurosurgery be consulted to evaluate the patient's shunt and the presence of the patient's history of normal-pressure hydrocephalus. We did appreciate a consult by neurosurgery who did perform a TELECOMMUNICATIONS SALES REPRESENTATIVE shunt tap at bedside. Following the procedure, the patient states that he felt roughly the same. However, his noted that when he got up to walk later that day that he did look improved of his gait. Dr. Negrete did follow up with the patient, and again felt that this represents more of a progressive decline rather than an acute onset stroke or TIA. The possibility of a shunt revision was discussed with neurosurgery, but it was felt that the patient would benefit from further rehab and outpatient followup rather than an acute need for revision here in the hospital. This was discussed with the family who was in agreement. In regards to the patient's mental status, it has waxed and waned here in the hospital. There are some days that the patient appears more clear and more oriented, and other days where is more sleepy and less oriented to situations. The patient consistently has difficulty identifying the year and being oriented to the time. From day to day, he is better oriented to place and situation; but , again, this does change from time to time with the patient showing significant disorientation which is more consistent with progressive cognitive decline. The patient does participate with PT and OT here, and has been noted to make good progress with his mobility utilizing a rolling walker. He is a good candidate for further rehab with the hope that he may be able to return home with his . CONCERNS AT DISCHARGE: Mr. Rees will be discharged to [facility]. Outpatient followup needs - the patient should have continued neurology and neurosurgery followup in regards to his normal-pressure hydrocephalus. DIET: Consistent carbohydrate diet. ACTIVITY: As tolerated. CONDITION: Stable. DISPOSITION: To [facility]. TIME SPENT: Time spent on this discharge was approximately 45 minutes. Again, this is only a brief summary of the patient's hospital course of stay. For full details, please refer to the full medical record. If you have any further questions or need further assistance, please feel free to contact me at . LEI VILLEGAS NP [id number]/[facility] #: [id number] ASHLYN
--- NOTE | 2017-02-18 11:36 | DS ---
CC: Dr. Preston * DISCHARGE SUMMARY: DATE OF ADMISSION: 02/13/17. DATE OF DISCHARGE: 02/18/17 PRIMARY CARE PHYSICIAN: Dr. Preston. ATTENDING PHYSICIAN: Vinod Jacobs MD* (dictation provided by Merly Lewis NP ). PRIMARY DIAGNOSES: Slurred speech with suspicion for normal pressure hydrocephalus. SECONDARY DIAGNOSES: 1. History of normal pressure hydrocephalus with shunt placement. 2. Type 2 diabetes, insulin dependent. 3. History of question Parkinson's disease. 4. Bladder cancer. 5. History of back surgery. 6. History of right foot injury in 1996. MEDICATIONS AT THE TIME OF DISCHARGE: No medication changes. 1. Psyllium 1 packet 3 times a day as needed. 2. [place] 3 fatty acid 1200 mg in the evening. 3. Lexapro 10 mg in the evening. 4. Metformin 750 mg p.o. daily. 5. Vitamin D 1000 units daily. 6. Aspirin 81 mg daily. 7. Slow-Mag 2 tabs twice daily. 8. Multivitamin 1 tablet daily. 9. Lantus insulin 30 units subcutaneous at bedtime. 10. Tramadol 15 mg every 8 hours. HOSPITAL COURSE: Mr. Rees is a 81-year-old male with a past medical history of a normal pressure hydrocephalus and diabetes, who presented to the hospital on 02/13/17 with concern for slurred speech. Please see dictated H and P from Ahsan Hung M.D. for complete details. In brief, the patient and his reported slurred speech, confusion, and recent falls at home. In the emergency room, he was back to baseline. His labs showed no leukocytosis, no anemia, and his electrolytes were normal. There was no evidence for UTI. His chest x-ray showed no evidence for pneumonia. His vitals were stable. Because of his history of NPH, the patient was seen in consultation by Dr. Coello from Neurosurgery. He performed a tap of the GLASS PROCESSING WORKER shunt on 02/14/17. Unfortunately, there was no improvement in the patient's gait or mental status afterwards. Therefore, there was no plan for emergent shunt revision, but the patient will be following up with Dr. Coello outpatient. The patient was also seen in consultation by Dr. Negrete from Neurology. He agreed that his symptoms were likely related to further decline with his ongoing normal pressure hydrocephalus and dementia. Mr. Rees is medically stable for discharge today, and plans are for him to go to rehabilitation at [facility] to improve his functioning, so hopefully he can return to home with his . DISPOSITION: [facility]. DIET: Consistent carbohydrate. ACTIVITY: As tolerated with physical therapy. FOLLOWUP PLANS: 1. Please follow up with Dr. Preston on discharge from [facility]. 2. Please consider follow up with Dr. Coello for continued monitoring of normal pressure hydrocephalus. TIME SPENT: Approximately 60 minutes was spent in the discharge of this patient , more than half that time was spent with the patient at the bedside reviewing the events leading up this hospitalization, performing the physical examination , and reviewing the plan of care. MERLY LEWIS NP [id number]/[facility] #: [id number] ASHLYN
== END 2017-02-18 12:00 | DRG 57 ==
LOC: ED 16:51 → MED 02-13 00:40 → OBSVTOIN 02-13 13:36
PROVIDERS: ADMIT Internal Medicine; ATTEND Hospitalist
PROC: 8C01X6J Collection of Cerebrospinal Fluid from Indwelling Device in Nervous System (ICD-10-PCS; principal; 2017-02-14)
DX: G91.2 (Idiopathic) normal pressure hydrocephalus (principal); G20 Parkinson's disease; C67.9 Malignant neoplasm of bladder, unspecified; R47.81 Slurred speech; E11.9 Type 2 diabetes mellitus without complications; F02.80 Dementia in other diseases classified elsewhere, unspecified severity, without behavioral disturbance, psychotic disturbance, mood disturbance, and anxiety; Z79.4 Long term (current) use of insulin; R47.1 Dysarthria and anarthria; F32.9 Major depressive disorder, single episode, unspecified; Z79.82 Long term (current) use of aspirin; Z79.84 Long term (current) use of oral hypoglycemic drugs; Z79.899 Other long term (current) drug therapy; Z98.2 Presence of cerebrospinal fluid drainage device; Z80.1 Family history of malignant neoplasm of trachea, bronchus and lung; Z80.0 Family history of malignant neoplasm of digestive organs; Z82.49 Family history of ischemic heart disease and other diseases of the circulatory system; Z87.891 Personal history of nicotine dependence; R32 Unspecified urinary incontinence
CPT/HCPCS: 36415; 71010; 80048; 80053; 81003; 82945; 83605; 84157; 84484; 85025; 85610; 86140; 87040; 87070; 87205; 87899; 89051; A9270-GY; J1644

== ENCOUNTER 2017-03-14 09:30 | Inpatient (IN) | payer MEDICARE ==
[2017-04-08] MEDS ORDERED: Buffered Lidocaine 0.9% SYRIN* 5 ML/SYR SYRINGE INTRADERM ONE (11:56)
[2017-04-09] MEDS ORDERED: Famotidine IV* 10 MG/ML 2 ML (20 mg) IV ONE (06:00)
[2017-04-09] MEDS ORDERED: ceFAZolin 2 GM PREMIX (*) 50 ML IVPB ONE (11:19)
[2017-04-09] MEDS ORDERED: Famotidine IV* 10 MG/ML 2 ML (20 mg) ONE (11:19)
[2017-04-09] MEDS ORDERED: Buffered Lidocaine 0.9% SYRIN* 5 ML/SYR SYRINGE ONE (11:19)
[2017-04-09 11:46] LABS: Hematocrit 36 % (42-52); Hemoglobin 12.1 g/dl (14.0-18.0); Mean Corpuscular HGB Conc 34 g/dl (31-36); Mean Corpuscular Hemoglobin 33 pg (27-31); Mean Corpuscular Volume 98 fL (80-94); Mean Platelet Volume 8 um3 (7.4-10.4); Red Blood Count 3.64 10^6/ul (4.0-5.4); Red Cell Distribution Width 14 % (10.5-15); White Blood Count 5.3 10^3/ul (3.5-10.8)
[2017-04-09 12:01] LABS: BUN/Creatinine Ratio 16.5 (8-20); Calcium 9.5 mg/dL (8.6-10.3); EGFR African American 89.6 (>60); EGFR Non-African American 69.7 (>60)
[2017-04-09] MEDS ORDERED: Lidocaine 1.5% EPI 1:200,000* 30 ML SDV ONE (12:26)
[2017-04-09] MEDS ORDERED: Thrombin 5,000 UNITS* 1 APPLIC KIT - topical use - TOPICAL ONE (12:26)
[2017-04-09] MEDS ORDERED: Propofol* 10 MG/ML 20 ML BTL IV PUSH ONE (12:27)
[2017-04-09] MEDS ORDERED: fentaNYL* 50 MCG/ML 2 ML VIAL (100 MCG VIAL) ONE (12:27)
[2017-04-09] MEDS ORDERED: Lidocaine 2% PF * 5 ML VIAL ONE (12:27)
[2017-04-09] MEDS ORDERED: Cisatracurium* 2 MG/ML MDV 5 ML ONE (12:27)
[2017-04-09] MEDS ORDERED: Ondansetron INJ* 2 MG/ML VIAL ONE (12:27)
[2017-04-09] MEDS ORDERED: Dexamethasone IV* 4 MG/ML 1 ML (4 MG) ONE (12:27)
[2017-04-09] MEDS ORDERED: Midazolam* 1 MG/ML 5 ML VIAL (5 MG) ONE (12:28)
[2017-04-09] MEDS ORDERED: KETAMINE HCL* 50 MG/ML 10 ML VIAL ONE (12:28)
[2017-04-09] MEDS ORDERED: HYDROcodone/ACETAMIN 5-325 MG* 1 TAB PO PRN (14:06)
[2017-04-09] MEDS ORDERED: Acetaminophen TAB* 325 MG PO PRN (14:06)
[2017-04-09] MEDS ORDERED: Psyllium PAK PO PRN (14:08)
[2017-04-09] MEDS ORDERED: Magnesium Hydroxide LIQ* 30 ML UDC PO PRN (14:08)
[2017-04-09] MEDS ORDERED: Labetalol IV* 5 MG/ML 20 ML VIAL ONE (14:19)
[2017-04-09] MEDS ORDERED: Levalbuterol 0.63MG/3ML NEB* UNIT OF USE INH PRN (14:35)
[2017-04-09] MEDS ORDERED: Ondansetron INJ* 2 MG/ML VIAL IV PRN (14:35)
[2017-04-09] MEDS ORDERED: fentaNYL* 50 MCG/ML 2 ML VIAL (100 MCG VIAL) IV PRN (14:35)
[2017-04-09] MEDS ORDERED: Dextrose 50% Syringe 50 ML* 25 GM/50 ML SYRINGE IV PUSH PRN (15:49)
[2017-04-09] MEDS: Insulin LISPRO* 1 UNITS UNIT SUBCUT SCH (18:28)
[2017-04-09] MEDS: Insulin GLARGINE(*) 1 UNITS UNIT SUBCUT SCH (21:24)
[2017-04-09] MEDS: Citalopram TAB* 20 MG PO SCH (21:24)
[2017-04-09] MEDS: Aspirin EC Low Dose* 81 MG TAB.EC PO SCH (21:24)
--- NOTE | 2017-04-09 21:38 | CONS ---
CC: SAHARA Rasheed; Dr. Negrete; Dr. Coello * CONSULTATION REPORT: DATE OF CONSULT: 04/09/17 PRIMARY CARE PROVIDER: SAHARA Rasheed PRIMARY NEUROLOGIST: Dr. Negrete. REQUESTING PHYSICIAN FOR CONSULT: Dr. Coello. MY ATTENDING PHYSICIAN WHILE IN THE HOSPITAL: Dr. Renee Pulliam (report dictated by Alexis Lozoya NP). REASON FOR MEDICAL CONSULT: Evaluation and medical management of comorbid medical conditions. HISTORY OF PRESENT ILLNESS: Mr. Rees is a 81-year-old male patient, he has a history of normal pressure hydrocephalus, history of prostate cancer, hypertension, hyperlipidemia, bladder cancer, and diabetes. He presents to our neurosurgical services today for a shunt revision. He was recently here in January with complaints of slurred speech. Family had reported at that point that he had a progressive worsening decline, not doing well, and having an unsteady gait and more cognitive issues. He was evaluated there and it was felt that he was having a normal pressure hydrocephalus. He had a tap done and was sent to follow up with Dr. Coello, who evaluated him and felt that he would benefit from a revision. He underwent revision today and because of his medical complexity, we were asked to evaluate in consult. He was evaluated in the PACU. He is fairly drowsy, but he is able to tell me he is not having any chest pain or shortness of breath. Denies having any headache. He did undergo general anesthesia. He denies having any nausea. He denies any abdominal discomfort. Denies any shortness of breath or chest discomfort, but because of his complexity, we were asked to evaluate. PAST MEDICAL HISTORY: Significant for: 1. Normal pressure hydrocephalus. 2. Diabetes. 3. Bladder cancer. 4. Prostate cancer. 5. Hypertension. 6. Hyperlipidemia. PAST SURGICAL HISTORY: 1. He has had a FIBROUS PLASTERER shunt placed [address] Co[address], now he has had a FIBROUS PLASTERER shunt revision. 2. ORIF, right ankle. 3. He has had back surgery. MEDICATIONS: His home meds according to the preop list include: 1. Flomax 0.4 mg daily. 2. Tramadol 50 mg every 8 hours as needed. 3. Lantus 30 units subcu at bedtime. 4. Slow-Mag 2 tablets p.o. b.i.d. 5. Metamucil 1 packet p.o. t.i.d. as needed. 6. [place]-3 fatty acids 1200 mg p.o. daily at bedtime. 7. Multivitamin 1 tablet daily. 8. Metformin 750 mg p.o. q.a.m. 9. Milk of mag 30 cc daily as needed. 10. Lexapro 10 mg p.o. daily. 11. Aspirin 81 mg daily. 12. Vitamin D 1000 units p.o. in the morning. 13. Tylenol 650 mg every 4 hours as needed. ALLERGIES TO MEDICATIONS: Include LIPITOR and CRESTOR. FAMILY HISTORY: His mother had a history of cardiomyopathy. Father had a history of renal cell cancer and lung cancer. SOCIAL HISTORY: He is former smoker, quit in the 60s. Does not drink alcohol. Surrogate decision maker is his . REVIEW OF SYSTEMS: There is no documented fever. He denied having any significant weight change. There was no double vision. He denies having any ear discharge. There was no rhinorrhea. No sore throat. No thyroid enlargement. He denied having any chest pain. No orthopnea, no nocturnal dyspnea. There was no abdominal pain. No nausea, no vomiting. There was no dysuria, no frequency. No seizure, no loss of consciousness. No pruritus and no skin ulceration. Review of 14 systems completed, all others negative. PHYSICAL EXAM: Reveals vital signs, blood pressure 134/70, pulse 73, respirations 18, O2 sat 96%, temperature 98.1 General: At this time, Mr. Rees is a 81-year- old male patient. He is sitting in the PACU bed. He does not appear to be in any acute distress. HEENT: Head is atraumatic. Eyes: Sclerae were anicteric. Pupils reactive to light. Neck: Supple. Throat: Oral mucosa appears to be moist. No oropharyngeal erythema. Heart: Sounds S1 and S2. Regular rate and rhythm. No murmurs, rubs, or gallops. Lungs: Clear to auscultation. No wheezes, rales, or rhonchi. Abdomen: Soft, flat, nontender. Bowel sounds are hypoactive. Extremities: He is able to move all 4 extremities. He has 5/5 strength. No peripheral edema. Pulses 2+ throughout. Neurologically, he is drowsy, but he will awaken to his name, will follow simple commands. His speech is clear, but he does appear to again to be very drowsy, falls asleep quickly. He is still again in the PACU and has anesthetic on board. No gross obvious deficits. Skin is intact with the exception to the right occipital and temporal area, he has a dressing which is clean, dry, and intact to the right scalp. DIAGNOSTIC STUDIES/LAB DATA: Reveal a WBC of 5.3, RBC of 3.64, hemoglobin 12.1 , hematocrit 36. His sodium was 131, potassium 4, chloride 98, bicarb 26, BUN 17, creatinine 1.03, glucose 126, calcium 9.5. Preop EKG showed a sinus rhythm with a rate of [address] elevations or T- wave inversions. Old medical records reviewed. ASSESSMENT AND PLAN: Mr. Rees is a 81-year-old male patient coming into the neurosurgical services for shunt revision. We were asked to evaluate in consult. Recommendations at this point are: 1. Status post shunt revision. I will defer the management of this to Dr. Coello. 2. Normal pressure hydrocephalus. He can follow with Dr. Negrete and again continue with the shunt. 3. Diabetes. Again, lispro sliding scale and we will continue his Lantus. 4. History of bladder cancer and prostate cancer. He can follow up with his urologist in [place]. 5. Hypertension. His blood pressure is stable. We will monitor. 6. Hyperlipidemia. Continue meds as prescribed. 7. DVT prophylaxis. We will go ahead and defer this to primary team. 8. Fluids, electrolytes, and nutrition. I would recommend a consistent carb diet. 9. Code status. Full code. TIME SPENT: On the consult was 60 minutes, greater than half the time was spent [id number] with the patient obtaining my history and physical, the other half of the time spent going over the plan of care with the patient and implementing my plan of care. I did discuss the plan of care with my attending, Dr. Pulliam; she is in agreement. ALEXIS LOZOYA, DEBBIE [id number]/[facility] #: [id number] ASHLYN
[2017-04-10] MEDS: Levalbuterol 1.25MG/0.5ML NEB INH PRN ×2 (05:41→17:49)
--- NOTE | 2017-04-10 08:18 | PN ---
Progress Note - Progress Note Date of Service: 04/10/17 SOAP: Subjective: [This is a 81 year old male with NPH who is s/p SERVICES TECH shunt revision, POD #1. He is quite confused this morning, stating that he is in his [place] and is unwilling to allow the nurse to take his blood pressure. Incontinence persists. Denies pain, headache and nausea. ] Objective: [ Vital Signs: Temp Pulse Resp BP Pulse Ox 97.6 F 78 20 130/72 99 04/10/17 03:21 04/10/17 05:41 04/10/17 05:41 04/10/17 03:21 04/10/17 05:41 General: Alert and disoriented to person, place and self. Neuro: Motor and sensory intact. Incision: Intact with juliana. ] Assessment: [Confused post-operatively. ] Plan: [1. Check BMP this morning. 2. Admit to inpatient. ]
[2017-04-10 09:12] LABS: Hematocrit 31 % (42-52); Hemoglobin 10.8 g/dl (14.0-18.0); Mean Corpuscular HGB Conc 35 g/dl (31-36); Mean Corpuscular Hemoglobin 34 pg (27-31); Mean Corpuscular Volume 97 fL (80-94); Mean Platelet Volume 8 um3 (7.4-10.4); Red Blood Count 3.19 10^6/ul (4.0-5.4); Red Cell Distribution Width 13 % (10.5-15); White Blood Count 8.2 10^3/ul (3.5-10.8)
[2017-04-10] MEDS: Tamsulosin CAP* 0.4 MG PO SCH (09:24)
[2017-04-10] MEDS: Cholecalciferol TAB* 1000 UNITS PO SCH (09:24)
[2017-04-10 09:26] LABS: BUN/Creatinine Ratio 17.5 (8-20); Calcium 9.1 mg/dL (8.6-10.3); EGFR Non-African American 74.7 (>60); Potassium 4.3 mmol/L (3.5-5.0)
[2017-04-10] MEDS: Insulin LISPRO* 1 UNITS UNIT SUBCUT SCH ×3 (10:06→18:30)
--- NOTE | 2017-04-10 14:21 | PN ---
Subjective Date of Service: 04/10/17 Interval History: Pt examined today at the bedside. States that he is feeling well. Denies headache. Denies chest pain denies sob. Denies nausea or vomiting. States he is hungry but likes the food better at his detention. ROS-denies fever, denies chills, denies chest pain, denies sob, denies nausea, denies vomiting, denies abdominal pain, denies lightheadedness, denies loc, review of 11 systems completed all others negative, Objective Active Medications: Acetaminophen (Tylenol Tab*) 650 mg PO Q4H PRN PRN Reason: PAIN Hydrocodone Bitart/Acetaminophen ([place] 5-325 Tab*) 2 tab PO Q4H PRN PRN Reason: marked pain Aspirin (Aspirin Ec Low Dose*) 81 mg PO QPM [facility] Last Admin: 04/09/17 21:24 Dose: 81 mg Cholecalciferol (Vitamin D Tab*) 1,000 units PO QAM [facility] Last Admin: 04/10/17 09:24 Dose: 1,000 units Citalopram Hydrobromide (Celexa Tab*) 20 mg PO QPM [facility] Last Admin: 04/09/17 21:24 Dose: 20 mg Dextrose (D50w Syringe 50 Ml*) 12.5 gm IV PUSH .FOR FS < 60 - SS PRN PRN Reason: FS < 60 Lactated Ringer's (Lactated Ringers 1000 Ml Bag*) 1,000 mls @ 75 mls/hr IV .per rate [facility] Last Admin: 04/10/17 06:08 Dose: 75 mls/hr Insulin Glargine (Lantus(*)) 30 units SUBCUT BEDTIME [facility] Last Admin: 04/09/17 21:24 Dose: 30 unit Insulin Human Lispro (Humalog*) 0 units SUBCUT AC [facility] PRN Reason: Protocol Last Admin: 04/10/17 13:34 Dose: 3 units Levalbuterol HCl (Xopenex 1.25 Mg/0.5 Ml Neb.Richelle*) 1.25 mg INH Q6H PRN PRN Reason: SOB/WHEEZING Last Admin: 04/10/17 05:41 Dose: 1.25 mg Magnesium Hydroxide (Milk Of Magnesia Liq*) 30 ml PO DAILY PRN PRN Reason: CONSTIPATION Psyllium Hydrophilic Mucilloid (Metamucil Quentin*) 1 pkt PO TID PRN PRN Reason: CONSTIPATION Tamsulosin HCl (Flomax Cap*) 0.4 mg PO DAILY [place] Last Admin: 04/10/17 09:24 Dose: 0.4 mg Vital Signs 04/09/17 04/09/17 04/09/17 14:30 14:35 14:40 Temperature 96.3 F Pulse Rate 66 66 66 Respiratory 16 17 17 Rate Blood Pressure 125/69 124/76 136/78 (mmHg) O2 Sat by Pulse 94 98 98 Oximetry 04/09/17 04/09/17 04/09/17 14:45 15:00 15:14 Temperature 98.1 F Pulse Rate 67 68 68 Respiratory 16 15 15 Rate Blood Pressure 138/79 139/75 138/80 (mmHg) O2 Sat by Pulse 98 97 97 Oximetry 04/09/17 04/09/17 04/09/17 15:30 15:45 16:00 Temperature Pulse Rate 73 73 72 Respiratory 16 18 15 Rate Blood Pressure 139/74 134/70 132/86 (mmHg) O2 Sat by Pulse 100 96 96 Oximetry 04/09/17 04/09/17 04/09/17 16:15 16:30 16:45 Temperature Pulse Rate 74 74 72 Respiratory 17 17 15 Rate Blood Pressure 132/78 138/75 132/74 (mmHg) O2 Sat by Pulse 98 99 99 Oximetry 04/09/17 04/09/17 04/09/17 17:20 18:14 19:17 Temperature 97.5 F 96.3 F 96.8 F Pulse Rate 78 75 79 Respiratory 15 19 16 Rate Blood Pressure 154/85 148/92 132/82 (mmHg) O2 Sat by Pulse 95 93 95 Oximetry 04/09/17 04/09/17 04/10/17 21:30 23:18 03:21 Temperature 97.0 F 97.4 F 97.6 F Pulse Rate 81 78 78 Respiratory 18 16 14 Rate Blood Pressure 139/60 136/76 130/72 (mmHg) O2 Sat by Pulse 94 94 92 Oximetry 04/10/17 04/10/17 04/10/17 03:37 04:07 05:41 Temperature Pulse Rate 72 78 Respiratory 20 Rate Blood Pressure (mmHg) O2 Sat by Pulse 97 97 99 Oximetry 04/10/17 04/10/17 08:00 11:28 Temperature 97.9 F Pulse Rate 75 Respiratory 16 17 Rate Blood Pressure 116/55 (mmHg) O2 Sat by Pulse 98 Oximetry Oxygen Devices in Use Now: None Appearance: 81 y/o male patient sitting in recliner NAD Eyes: No Scleral Icterus Ears/Nose/Mouth/Throat: Mucous Membranes Moist Neck: NL Appearance and Movements; NL JVP Respiratory: Symmetrical Chest Expansion and Respiratory Effort, Clear to Auscultation Cardiovascular: NL Sounds; No Murmurs; No JVD Abdominal: NL Sounds; No Tenderness; No Distention Extremities: No Edema Skin: No Rash or Ulcers Neurological: Alert and Oriented x 3 - thinks its february, knows he is in hospital, , NL Muscle Strength and Tone Lines/Tubes/Other Access: Clean, Dry and Intact Peripheral IV Result Diagrams: 04/10/17 08:57 04/10/17 08:57 Microbiology and Other Data: Microbiology 04/09/17 17:55 Nasal Screen MRSA (PCR)(KRISTOPHER) - Final Nasal Mrsa Negative Assess/Plan/Problems-Billing Assessment: 81 y/o with NPH s/p shunt revision - Patient Problems (1) Full code status Current Visit: Yes Status: Acute Priority: High (2) FEN Current Visit: Yes Status: Acute Priority: High Comment: recommend consistent carb diet (3) HTN (hypertension) Current Visit: Yes Status: Acute Priority: High Comment: BP stable on now meds, f/u with primary (4) HLD (hyperlipidemia) Current Visit: Yes Status: Acute Priority: High Comment: [place] fatty acids continue when able, (5) DVT prophylaxis Current Visit: Yes Status: Acute Priority: High Comment: Per primary team (6) S/P COLLAR FELLER shunt Current Visit: Yes Status: Acute Priority: High Comment: POD 1 s/p revision management per neurosurgery (7) Diabetes mellitus Current Visit: Yes Status: Acute Comment: - BG controlled. - Continue home Lantus, sliding scale, (8) Hydrocephalus Current Visit: Yes Status: Chronic Priority: High Comment: S/P Fire Captain Marine shunt revision, Stable Follow with neurology f/u (9) Bladder cancer Current Visit: Yes Status: Acute Priority: High Comment: Stable follow with urologist Status and Disposition: Dispo per neurosurgery
[2017-04-10] MEDS: Citalopram TAB* 20 MG PO SCH (18:29)
[2017-04-10] MEDS: Aspirin EC Low Dose* 81 MG TAB.EC PO SCH (18:29)
[2017-04-10] MEDS: Insulin GLARGINE(*) 1 UNITS UNIT SUBCUT SCH (20:19)
[2017-04-11] MEDS: Levalbuterol 1.25MG/0.5ML NEB INH PRN (03:09)
[2017-04-11 08:13] LABS: Hematocrit 32 % (42-52); Mean Corpuscular HGB Conc 35 g/dl (31-36); Mean Corpuscular Hemoglobin 34 pg (27-31); Mean Corpuscular Volume 97 fL (80-94); Mean Platelet Volume 8 um3 (7.4-10.4); Red Blood Count 3.28 10^6/ul (4.0-5.4); Red Cell Distribution Width 14 % (10.5-15); White Blood Count 7.2 10^3/ul (3.5-10.8)
[2017-04-11] MEDS: Tamsulosin CAP* 0.4 MG PO SCH (08:22)
[2017-04-11] MEDS: Cholecalciferol TAB* 1000 UNITS PO SCH (08:22)
[2017-04-11 08:38] LABS: BUN/Creatinine Ratio 19.2 (8-20); Calcium 8.8 mg/dL (8.6-10.3); EGFR African American 88.6 (>60); EGFR Non-African American 68.9 (>60); Potassium 3.7 mmol/L (3.5-5.0)
[2017-04-11] MEDS: Insulin LISPRO* 1 UNITS UNIT SUBCUT SCH ×2 (09:08→14:46)
--- NOTE | 2017-04-11 11:40 | PN ---
Progress Note - Progress Note Date of Service: 04/11/17 SOAP: Subjective: [S/p ASSISTANT PROPERTY MANAGER shunt revision, POD #2. More alert and much less confused this morning. Able to explain the surgery he had done and where he is. Denies headache, nausea. Has been up out of bed with assistance of PT.] Objective: [ Vital Signs: Temp Pulse Resp BP Pulse Ox 98.3 F 74 19 134/85 92 04/11/17 07:24 04/11/17 07:24 04/11/17 08:20 04/11/17 07:24 04/11/17 08:20 General: Alert and oriented to person, place and time. Head: Incision intact to right frontal head. No swelling or drainage. Neuro: Motor and sensory intact. ] Assessment: [Satisfactory post-op course.] Plan: [1. Discharge to nursing facility today. ]
[2017-04-11 12:12] VITALS: BP 153/78
--- NOTE | 2017-04-11 14:28 | DS ---
DATE OF ADMISSION: 04/09/2017. DATE OF DISCHARGE: 04/11/2017. ATTENDING PHYSICIAN: Dr. Michael Coello * (dictated by SHARAN Mendez). DISCHARGE DIAGNOSES: 1. Normal pressure hydrocephalus. 2. Diabetes. SPECIAL PROCEDURE: FORGING MACHINE OPERATOR shunt revision. HOSPITAL COURSE: This 81-year-old male was seen during a previous hospital admission and complained of worsening incontinence, difficulty with gait, and it was felt that his FORGING MACHINE OPERATOR shunt was malfunctioning. The shunt was tapped and fluid was drawn off. Symptoms improved and he followed up in the office to discuss revision of the shunt. It was decided that he would undergo revision of the shunt and he was admitted at that time for an elective surgical therapy. On the day of admission, he was taken to surgery where under general anesthesia a FORGING MACHINE OPERATOR shunt revision operation was carried out. Postoperatively, he was feeling well. He continued to ambulate with much assistance. On the first postoperative day, he was relatively confused and unable to answer who he was or where he was. This was thought to be due to anesthesia or pain medications and he therefore was admitted to the inpatient service for an additional night. On the second postoperative day, he was doing very well. He was being seen by Physical Therapy and had been up out of bed. He denied headache, nausea and was feeling well. Confusion had significantly improved. He was alert and oriented to person, place and time. On the second postoperative day, he was discharged home to the nursing facility where he had previously resided before surgery. DISCHARGE INSTRUCTIONS: Discharge instructions were outlined in the discharge paperwork. DISCHARGE MEDICATIONS: None. He will resume all home meds. FOLLOW-UP: He will be seen in the office next Saturday, April 19 at our [place] location. SHARAN MENDEZ [id number]/[facility] #: [id number] [facility]ENTER[facility]ureano
--- NOTE | 2017-04-12 13:26 | OP ---
OPERATIVE REPORT: DATE OF OPERATION: 04/09/17. DATE OF : 39. PRIMARY SURGEON: Michael Coello MD. DELIVERER PHARMACY: SHARAN Casillas. ANESTHESIA: General. PRE-OP DIAGNOSIS: Ventriculoperitoneal shunt malfunction. POST-OP DIAGNOSIS: Ventriculoperitoneal shunt malfunction. OPERATIVE PROCEDURE: Revision of right ventriculoperitoneal shunt with replacement of valve. 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 He has developed clinical decline and a shunt tap has suggested d istal obstruction of his shunt. He was admitted at this time for elective shunt revision. After pl acing him under general anesthesia, his previous right-sided cranial area that had received a shunt was clipped, prepped and draped as was his abdomen, chest and neck for potential shunt revision. Th e initial step in the procedure was reopening of his cranial incision. This incision was infiltrated with 1% Xylocaine with epinephrine after which it was turned down sharply to the scar tissue and pe riosteum. This excision was extended parallel to the existing shunt system. The scar tissue was di ssected free from its underlying shunt apparatus with monopolar cautery and self-retaining retractor was placed to facilitate exposure. The initial step in the procedure was detaching his old valve w ith rubber shod hemostats applied to the ventricular catheter which showed good flow of cerebrospina l fluid. Rubber shods were also placed on the distal catheter and the prior valve removed. The dis rajesh catheter was then tested by filling a lumbar puncture manometer up with irrigation fluid and let ting it run off distally which it did without difficulty. It was felt that the only adjustment need ed was the new shunt valve. A programmable Medtronic Strata valve was then inserted and set at a 1. 5 setting. This valve was secured into position with silk ties. The valve apparatus was then secur ed to the periosteum with 4-0 Nurolon suture. The wound was then thoroughly irrigated after which t he subcutaneous tissues were reapproximated with 3-0 Vicryl and the skin closed with skin clips. The estimated blood loss was less than 50 cc and the final sponge, padding, and needle counts were nitish ect. The patient was taken to the recovery room, extubated and in stable condition. [id number]/[facility] #: [id number]
== END 2017-04-11 14:55 | DRG 32 ==
LOC: AA 04-09 08:21 → INTOOBSV 04-09 10:50 → SSU 04-09 17:20 → OBSVTOIN 04-10 08:21
PROVIDERS: ADMIT Neurological Surgery; ATTEND Neurological Surgery
PROC: 00W60JZ Revision of Synthetic Substitute in Cerebral Ventricle, Open Approach (ICD-10-PCS; principal; 2017-04-10)
DX: T85.01XA Breakdown (mechanical) of ventricular intracranial (communicating) shunt, initial encounter (principal); G91.2 (Idiopathic) normal pressure hydrocephalus; J44.9 Chronic obstructive pulmonary disease, unspecified; C67.9 Malignant neoplasm of bladder, unspecified; Y92.9 Unspecified place or not applicable; Y75.1 Therapeutic (nonsurgical) and rehabilitative neurological devices associated with adverse incidents; E11.9 Type 2 diabetes mellitus without complications; I10 Essential (primary) hypertension; R32 Unspecified urinary incontinence; Z87.891 Personal history of nicotine dependence; E78.5 Hyperlipidemia, unspecified; Z85.46 Personal history of malignant neoplasm of prostate; Z82.49 Family history of ischemic heart disease and other diseases of the circulatory system; Z80.51 Family history of malignant neoplasm of kidney; Z80.1 Family history of malignant neoplasm of trachea, bronchus and lung; G89.29 Other chronic pain; M54.40 Lumbago with sciatica, unspecified side
CPT/HCPCS: 36415; 80048; 85025; 85027; 87641; 94640; 94760; A9270-GY; G0378; J0690; J1100; J2250; J2405; J2704; J3010